=== PATIENT | male | born 1940 | race Caucasian/White ===

== ENCOUNTER 2017-03-01 00:50 | Outpatient (CLI) | payer MEDICARE, OTHER | END 2017-03-01 00:51 | disposition critical access hospital (66) | LOC: EMS 00:50 | PROVIDERS: ATTEND Surgery | DX: R53.1 Weakness (principal); R19.7 Diarrhea, unspecified; R10.9 Unspecified abdominal pain | CPT/HCPCS: A0425; A0427 ==

== ENCOUNTER 2017-03-01 01:22 | Emergency (ER) | payer MEDICARE, OTHER ==
[2017-03-01] MEDS ORDERED: ONDANSETRON 4 MG/2 ML VIAL IVP STA (01:37)
[2017-03-01] MEDS ORDERED: SODIUM CHLORIDE 0.9% 1,000 ML IV ONE ×2 (01:37→02:59)
[2017-03-01] MEDS ORDERED: ONDANSETRON 4 MG/2 ML VIAL ONE (01:51)
[2017-03-01 02:25] LABS: BASOPHILS % (AUTO) 0.1 %; EOSINOPHILS % (AUTO) 0.3 %; HCT - HEMATOCRIT 43.6 % (42.0-52.0); HGB - HEMOGLOBIN 14.9 g/dL (14.0-18.0); LYMPHOCYTES # (AUTO) 0.4 10^3/uL (1.5-3.5); LYMPHOCYTES % (AUTO) 3.1 %; MEAN CORPUSCULAR HEMOGLOBIN 33.8 pg (27.0-31.0); MEAN CORPUSCULAR HGB CONC 34.3 g/dL (32.0-36.0); MEAN CORPUSCULAR VOLUME 98.6 fL (80.0-94.0); MEAN PLATELET VOLUME 8.8 fL (7.4-11.4); MONOCYTES # (AUTO) 0.4 10^3/uL (0.0-1.0); MONOCYTES % (AUTO) 3.2 %; NEUTROPHILS # (AUTO) 10.7 10^3/uL (1.5-6.6); NEUTROPHILS % (AUTO) 93.3 %; RED BLOOD COUNT 4.42 10^6/uL (4.70-6.10); RED CELL DISTRIBUTION WIDTH 12.8 % (12.0-15.0); UNCORRECTED WHITE BLOOD COUNT 11.4 x10^3/uL; WHITE BLOOD COUNT 11.4 x10^3/uL (4.8-10.8)
[2017-03-01 02:34] LABS: ALBUMIN/GLOBULIN RATIO 1.4 (1.0-2.2); BILIRUBIN,TOTAL 0.8 mg/dL (0.2-1.0); CALCIUM 8.6 mg/dL (8.5-10.3); CREATININE 1.1 mg/dL (0.6-1.2); POTASSIUM 3.7 mmol/L (3.5-5.0); TOTAL PROTEIN 6.6 g/dL (6.7-8.2)
--- NOTE | 2017-03-01 02:53 | ED Physician Documentation ---
PD HPI NVD - Stated complaint Stated Complaint: ABD PN/NAUSEA - Chief complaint Chief Complaint: Abd Pain - History obtained from History obtained from: Patient, Family, EMS - History of Present Illness Timing - onset: Enter time (0000), Today Timing - duration: Hours Timing - details: Abrupt onset, Still present Associated symptoms: Abdominal pain, Dizzy, Near syncope / syncope Contributing factors: Other (had [place] dinner with his and she is well). No: Sick contact Improved by: Laying still, Vomiting, BM Similar symptoms before: Has not had sx before Recently seen: Not recently seen - Additonal information Additional information: 77 y/o male with a pacer was well yesterday entirely and this evening he was in bed when he developed sudden abdominal cramping, diaphoresis and went in to the bathroom to have a BM and after a while (30 miniutes on the pot) he had repeated episodes of diarrhea and he became profoundly weak. Review of Systems Constitutional: reports: Fever, Chills, Myalgias, Fatigue, Sweats Eyes: denies: Decreased vision Ears: denies: Ear pain Nose: denies: Congestion Throat: denies: Sore throat Cardiac: denies: Chest pain / pressure, Palpitations Respiratory: denies: Dyspnea, Cough GI: reports: Abdominal Pain, Nausea, Vomiting, Diarrhea : denies: Dysuria, Frequency Skin: denies: Rash Musculoskeletal: denies: Neck pain, Back pain, Extremity pain PD PAST MEDICAL HISTORY - Past Medical History Past Medical History: Yes Cardiovascular: Atrial fibrillation, Arrhythmia Other Past Medical History: pacemaker. ablation. TIA - Past Surgical History Cardiovascular: Pacemaker - Present Medications Home Medications: Ambulatory Orders Medication Instructions Recorded Confirmed Furosemide 40 mg PO BID 03/01/17 03/01/17 Lisinopril 20 mg PO DAILY 03/01/17 03/01/17 Lisinopril/Hydrochlorothiazide 12.5 - 20 mg PO DAILY 03/01/17 03/01/17 [Lisinopril-Hctz 20-12.5 mg Tab] Lovastatin 20 mg PO DAILY 03/01/17 03/01/17 Metoprolol Succinate [Toprol Xl] 25 mg PO DAILY 03/01/17 03/01/17 Spironolactone 25 mg PO DAILY 06/18/17 06/18/17 Warfarin [Coumadin] 5 mg PO DAILY 03/01/17 03/01/17 - Allergies Allergies/Adverse Reactions: Allergies Allergy/AdvReac Type Severity Reaction Status Date / Time shellfish derived Allergy Anaphylaxis Verified 03/01/17 01:33 shellfish Allergy Anaphylaxis Uncoded 03/01/17 01:33 - Social History Does the pt smoke?: No Smoking Status: Never smoker PD ED PE NORMAL - Vitals Vital signs reviewed: Yes (wide pulse pressure. ) - General General: Well developed/nourished, Other (The patient is shaking and chilling. ) - HEENT HEENT: Atraumatic, PERRL, EOMI - Neck Neck: Supple, no meningeal sign, No bony TTP - Cardiac Cardiac: RRR, No murmur - Respiratory Respiratory: No respiratory distress, Clear bilaterally - Abdomen Abdomen: Normal bowel sounds, Soft, Non tender, Non distended, No organomegaly - Back Back: No CVA TTP, No spinal TTP - Derm Derm: Normal color, Warm and dry, No rash - Extremities Extremities: No deformity, No edema - Neuro Neuro: Alert and oriented X 3, No motor deficit, No sensory deficit, Normal speech - Psych Psych: Normal mood, Normal affect Results - Vitals Vitals: Vital Signs - 24 hr 03/01/17 03/01/17 03/01/17 01:23 01:45 02:18 Temperature 36.7 C Heart Rate 70 70 70 Respiratory 14 16 16 Rate Blood Pressure 111/58 L 129/62 111/61 O2 Saturation 100 97 97 03/01/17 03:05 Temperature Heart Rate 70 Respiratory 15 Rate Blood Pressure 108/57 L O2 Saturation 94 Oxygen O2 Source Room air - Labs Labs: Laboratory Tests 03/01/17 03/01/17 03/01/17 02:15 02:15 02:15 WBC 11.4 H RBC 4.42 L Hgb 14.9 Hct 43.6 MCV 98.6 H MCH 33.8 H MCHC 34.3 RDW 12.8 Plt Count 148 MPV 8.8 Neut # 10.7 H Lymph # 0.4 L Mcc[place]ick # 0.4 Eos # 0.0 Baso # 0.0 Absolute Nucleated RBC 0.01 Nucleated RBCs 0.0 PT 26.9 H INR 2.4 H Sodium 141 Potassium 3.7 Chloride 105 Carbon Dioxide 27 Anion Gap 9.0 BUN 27 H Creatinine 1.1 Estimated GFR (MDRD) 65 L Glucose 114 H Lactic Acid Calcium 8.6 Total Bilirubin 0.8 AST 29 ALT 29 Alkaline Phosphatase 44 Troponin I Total Protein 6.6 L Albumin 3.9 Globulin 2.7 Albumin/Globulin Ratio 1.4 Lipase 20 L Urine Color Urine Clarity Urine pH Ur Specific [place] Urine Protein Urine Glucose (UA) Urine Ketones Urine Occult Blood Urine Nitrite Urine Bilirubin Urine Urobilinogen Ur Leukocyte Esterase Ur Microscopic Review Urine Culture Comments 03/01/17 03/01/17 03/01/17 02:15 02:15 03:44 WBC RBC Hgb Hct MCV MCH MCHC RDW Plt Count MPV Neut # Lymph # Mccormick # Eos # Baso # Absolute Nucleated RBC Nucleated RBCs PT INR Sodium Potassium Chloride Carbon Dioxide Anion Gap BUN Creatinine Estimated GFR (MDRD) Glucose Lactic Acid 2.5 H Calcium Total Bilirubin AST ALT Alkaline Phosphatase Troponin I < 0.04 < 0.04 Total Protein Albumin Globulin Albumin/Globulin Ratio Lipase Urine Color Urine Clarity Urine pH Ur Specific [place] Urine Protein Urine Glucose (UA) Urine Ketones Urine Occult Blood Urine Nitrite Urine Bilirubin Urine Urobilinogen Ur Leukocyte Esterase Ur Microscopic Review Urine Culture Comments 03/01/17 03/01/17 03:44 04:44 WBC RBC Hgb Hct MCV MCH MCHC RDW Plt Count MPV Neut # Lymph # [place] # Eos # Baso # Absolute Nucleated RBC Nucleated RBCs PT INR Sodium Potassium Chloride Carbon Dioxide Anion Gap BUN Creatinine Estimated GFR (MDRD) Glucose Lactic Acid 1.7 Calcium Total Bilirubin AST ALT Alkaline Phosphatase Troponin I Total Protein Albumin Globulin Albumin/Globulin Ratio Lipase Urine Color YELLOW Urine Clarity CLEAR Urine pH 6.0 Ur Specific [place] 1.020 Urine Protein NEGATIVE Urine Glucose (UA) NEGATIVE Urine Ketones NEGATIVE Urine Occult Blood NEGATIVE Urine Nitrite NEGATIVE Urine Bilirubin NEGATIVE Urine Urobilinogen 0.2 (NORMAL) Ur Leukocyte Esterase NEGATIVE Ur Microscopic Review NOT INDICATED Urine Culture Comments NOT INDICATED Procedures - IVC sono (time) 0135 Bedside IVC sono: IVC measures (cm) (1.23), IVC collapsed c insp (cm) (complete with 1st liter running open), Dehydration PD MEDICAL DECISION MAKING - ED course Complexity details: reviewed old records, reviewed results, re-evaluated patient , considered differential, d/w patient, d/w family ED course: 77 y/o male developed shaking chills, sweats and diarrhea this evening after being well during the day. He remains dehydrated on arrival to the ED after one liter of saline and a second liter is administered followed by 200ml/hr. until urine is returned. Feels much improved at the time of completion of treatment. Departure - Departure Disposition: 01 Home, Self Care Clinical Impression: Gastroenteritis, Dehydration Instructions: ED Food Poison Or Gastroenteritis, ED Dehydration Follow-Up: Temo Kenny [Physician No Access] -
[2017-03-01 02:56] LABS: INR 2.4 (0.8-1.2); PT - PROTHROMBIN TIME 26.9 secs (9.9-12.6)
[2017-03-01 04:55] LABS: BILIRUBIN,URINE NEGATIVE (NEGATIVE)
[2017-03-01 05:07] LABS: UA CHARGE (STRIP ONLY) YES; UR CULTURE IF IND NOT INDICATED
[2017-03-01 05:26] VITALS: BP 104/60
== END 2017-03-01 05:30 | disposition home or self-care (01) ==
LOC: EDUNIT# → ED 01:22
DX: K52.9 Noninfective gastroenteritis and colitis, unspecified (principal); E86.0 Dehydration; I48.91 Unspecified atrial fibrillation; Z79.01 Long term (current) use of anticoagulants; Z95.0 Presence of cardiac pacemaker
CPT/HCPCS: 36415; 80053; 81001; 81003; 83605; 83690; 84484; 85025; 85610; 87040; 87086; 96374; 99284

== ENCOUNTER 2021-04-06 11:40 | Outpatient (CLI) | payer MEDICARE, OTHER | END 2021-04-06 11:41 | disposition critical access hospital (66) | LOC: EMS 11:40 | DX: S01.81XA Laceration without foreign body of other part of head, initial encounter (principal); W01.0XXA Fall on same level from slipping, tripping and stumbling without subsequent striking against object, initial encounter; Y93.89 Activity, other specified; Y92.008 Other place in unspecified non-institutional (private) residence as the place of occurrence of the external cause | CPT/HCPCS: A0425; A0429 ==

== ENCOUNTER 2021-04-06 11:42 | Emergency (ER) | payer MEDICARE, OTHER ==
[2021-04-06] MEDS ORDERED: BUFFERED LIDOCAINE 10 ML SYRINGE SUBQ STA (11:48)
[2021-04-06] MEDS ORDERED: TETANUS/DIPHTHERIA/PERTUSSIS 0.5 ML SYRINGE IM ONE (11:48)
--- NOTE | 2021-04-06 11:51 | ED Physician Documentation ---
PD HPI HEAD INJURY - Stated complaint Stated Complaint: GLF / HEAD INJ - History obtained from History obtained from: Patient - Additional information Additional information: 81-year-old gentleman who is anticoagulated With Coumadin for A. fib likely tripped and fell in his driveway although does not remember it but there was no loss of consciousness. Has a laceration over the left eyebrow with some embedded plastic from his sunglasses. Tetanus is unknown. Denies headache. No other injuries. Brought in as a modified trauma and attended to immediately. Review of Systems Ten Systems: 10 systems reviewed and negative Constitutional: reports: Reviewed and negative Eyes: reports: Reviewed and negative Ears: reports: Reviewed and negative Nose: reports: Reviewed and negative Throat: reports: Reviewed and negative PD PAST MEDICAL HISTORY - Past Medical History Cardiovascular: Atrial fibrillation, Arrhythmia - Past Surgical History Cardiovascular: Pacemaker - Present Medications Home Medications: Ambulatory Orders Medication Instructions Recorded Confirmed Furosemide 40 mg PO BID 03/01/17 03/01/17 Lisinopril/Hydrochlorothiazide 12.5 - 20 mg PO DAILY 03/01/17 03/01/17 [Lisinopril-Hctz 20-12.5 mg Tab] Lovastatin 20 mg PO DAILY 03/01/17 03/01/17 Metoprolol Succinate [Toprol Xl] 25 mg PO DAILY 03/01/17 03/01/17 Spironolactone 25 mg PO DAILY 03/01/17 03/01/17 Warfarin [Coumadin] 5 mg PO DAILY 03/01/17 03/01/17 lisinopriL [Lisinopril] 20 mg PO DAILY 03/01/17 03/01/17 Bacitracin Zinc Oint 1 applic TOP BID #1 gm 04/06/21 - Allergies Allergies/Adverse Reactions: Allergies Allergy/AdvReac Type Severity Reaction Status Date / Time shellfish derived Allergy Anaphylaxis Verified 04/06/21 11:52 shellfish Allergy Anaphylaxis Uncoded 04/06/21 11:52 - Social History Does the pt smoke?: No Smoking Status: Never smoker PD ED PE NORMAL - Vitals Vital signs reviewed: Yes - General General: Alert and oriented X 3, No acute distress - HEENT HEENT: PERRL, EOMI, Other (4 cm L-shaped laceration in the left eyebrow with embedded plastic bits which were easily removed.) - Neck Neck: Supple, no meningeal sign, No bony TTP - Extremities Extremities: No deformity, No tenderness to palpate, Normal ROM s pain - Neuro Neuro: Alert and oriented X 3, No motor deficit, No sensory deficit, Normal speech Eye Opening: Spontaneous Motor: Obeys Commands Verbal: Oriented GCS Score: 15 Results - Vitals Vitals: Vital Signs - 24 hr 04/06/21 04/06/21 11:44 12:06 Temperature 36.3 C L 36.4 C L Heart Rate 70 71 Respiratory 16 17 Rate Blood Pressure 139/62 H 139/62 H O2 Saturation 98 99 Oxygen O2 Source Room air - Labs Labs: Laboratory Tests 04/06/21 12:07 INR (Fingerstick) 2.8 H - Rads (name of study) CT Head and Cspine Radiology: EMP read contemporaneously Procedures - Laceration (location) L eyebrow Length in cm: 4 Wound type: Irregular, Into muscle, Contaminated Anesthesia: Lidocaine 1%, With bicarb Wound preparation: Irrigated copiously NS, Debrided extensively, Wound explored, To the base, FB identified (multiple glass and removed) Deep layer closure: Vicryl, size #-0 - enter number (5-0), # sutures - enter number (1) Skin layer closure: Prolene, Size #-0 - enter number (6-0), Sutures - enter # (13) Other: Patient tolerated well, No complications, Neurovascular intact, Tetanus booster given Departure - Departure Disposition: 01 Home, Self Care Clinical Impression: Concussion, Injury of head and neck, Laceration Condition: Good Record reviewed to determine appropriate education?: Yes Instructions: ED Laceration Facial Sutr Tape, ED Head Injury Closed Prescriptions: Bacitracin Zinc Oint 1 applic TOP BID #1 gm Comments: Your INR today was 2.8. This was within range of where it should be. CT of the cervical spine and head show no evidence of significant trauma. The laceration was closed with 13 nonabsorbable sutures. Come back for any signs of infection which would include: Redness, swelling, drainage, increased pain, or fevers. You can wash it soap and water. Keep it covered and moist with bacitracin ointment which is available over the counter; avoid neosporin. Follow-up with your physician in 7 days for suture removal.
--- NOTE | 2021-04-06 12:23 | CT Report ---
PROCEDURE: HEAD WO INDICATIONS: head injury TECHNIQUE: Noncontrast 4.5 mm thick angled axial sections acquired from the foramen magnum to the vertex. For r adiation dose reduction, the following was used: automated exposure control, adjustment of mA and/or kV according to patient size. COMPARISON: Correlation is made with the accompanying cervical spine CT, 04/06/2021. FINDINGS: Image quality: There is streak artifact seen through the skull base. CSF spaces: Basal cisterns are patent. No extra-axial fluid collections. Ventricles are normal in size and shape. Brain: No midline shift. No intracranial masses or hemorrhage. Lomas-white matter interface is norm al. Skull and face: There is a left forehead laceration seen, with soft tissue gas. No underlying calvar ial fracture can be seen. Calvarium and visualized facial bones are intact, without suspicious lesion s. Sinuses: There is a small air-fluid level seen within the left maxillary sinus. IMPRESSION: Left forehead hematoma seen, without an underlying calvarial fracture. There is an air-fluid level seen within the left maxillary sinus. No displaced facial bone fractures are detected on this study. No intracranial hemorrhage is seen. No significant intracranial abnormality is seen. Reviewed by: Juancho Verma MD on 04/06/2021 11:22 AM SAE Approved by: Juancho Verma MD on 04/06/2021 11:22 AM SAE Station ID: [id number]
--- NOTE | 2021-04-06 12:24 | CT Report ---
PROCEDURE: CERVICAL SPINE WO INDICATIONS: Head injury TECHNIQUE: Noncontrast 3 mm thick sections acquired from the skull base to the T4 level. Sagittal and coronal r eformats were then constructed. For radiation dose reduction, the following was used: automated exp osure control, adjustment of mA and/or kV according to patient size. COMPARISON: Correlation is made with the accompanying head CT, 04/06/2021. FINDINGS: Image quality: Excellent. Bones: No fractures or dislocations. Visualized superior ribs are intact. There is moderate to severe disc space narrowing seen at C5-C6 and at C6-C7. Posteriorly directed end plate osteophytes are seen at C5-C6. Soft tissues: Prevertebral soft tissues are normal in thickness. No paravertebral hematomas. No ap ical pneumothoraces. Atherosclerotic calcification is seen. Pacer leads are partially seen on the left. IMPRESSION: No acute fracture can be seen. Lower cervical spine degenerative changes are seen. Incidental note is made of: Pacer leads Reviewed by: Juancho Verma MD on 04/06/2021 11:23 AM SAE Approved by: Juancho Verma MD on 04/06/2021 11:23 AM SAE Station ID: [id number]
[2021-04-06] MEDS ORDERED: BACITRACIN ZINC OINT 1 PACKET TOP STA (12:42)
[2021-04-06 13:17] VITALS: BP 107/63
== END 2021-04-06 13:17 | disposition home or self-care (01) ==
LOC: EDUNIT# → ED 11:42
DX: S01.122A Laceration with foreign body of left eyelid and periocular area, initial encounter (principal); S06.0X0A Concussion without loss of consciousness, initial encounter; W18.30XA Fall on same level, unspecified, initial encounter; Y93.89 Activity, other specified; I48.91 Unspecified atrial fibrillation; Z79.01 Long term (current) use of anticoagulants; Z23 Encounter for immunization
CPT/HCPCS: 12052; 70450; 72125; 85610; 90715; 99283; 99284; A9270

== ENCOUNTER 2024-02-26 17:38 | Outpatient (CLI) | payer MEDICARE | END 2024-02-26 17:39 | disposition critical access hospital (66) | LOC: EMS 17:38 | DX: R50.9 Fever, unspecified (principal); R53.1 Weakness | CPT/HCPCS: A0425; A0427 ==

== ENCOUNTER 2024-02-26 18:09 | Emergency (ER) | payer MEDICARE, OTHER ==
--- NOTE | 2024-02-26 18:17 | ED Physician Documentation ---
PD HPI FEVER - Stated complaint Stated Complaint: FEVER - History obtained from History obtained from: Patient, EMS - Additional information Additional information: 84-year-old gentleman who presents by ambulance. He goes by Manpreet and today [birth year] his birthday. It sounds like he had major trauma back in December and was sent to [facility] in [place] during which he may have had per his description may be a hemothorax with chest tube on the left. He has been catheter dependent since then. He had his catheter changed on Thursday by his urologist who wrote him prescription for Bactrim with the instructions to start if he ran a fever. It s ounds like he may have had a positive urinalysis in clinic. He started to run a fever on Thursday on and off up to 102 tonight. They filled the Bactrim yesterday but have not started it. PD PAST MEDICAL HISTORY - Past Medical History Cardiovascular: Atrial fibrillation, Arrhythmia - Past Surgical History Cardiovascular: Pacemaker - Present Medications Home Medications: Ambulatory Orders Medication Instructions Recorded Confirmed Furosemide 40 mg PO BID 03/01/17 08/20/21 Metoprolol Succinate [Toprol Xl] 50 mg PO BID 03/01/17 08/20/21 Atorvastatin [Lipitor] 40 mg PO DAILY 07/26/21 08/20/21 Apixaban [Eliquis] 5 mg PO DAILY 02/26/24 02/26/24 Aspirin [Vazalore] 81 mg PO DAILY 02/26/24 02/26/24 Sacubitril/Valsartan [Entresto 24 1 each PO DAILY 02/26/24 02/26/24 mg-26 mg Tablet] - Allergies Allergies/Adverse Reactions: Allergies Allergy/AdvReac Type Severity Reaction Status Date / Time shellfish derived Allergy Anaphylaxis Verified 02/26/24 18:22 shellfish Allergy Anaphylaxis Uncoded 02/26/24 18:22 - Social History Does the pt smoke?: No Smoking Status: Never smoker PD ED PE NORMAL - Vitals Vital signs reviewed: Yes - General General: Alert and oriented X 3, No acute distress - Cardiac Cardiac: RRR, No murmur - Respiratory Respiratory: No respiratory distress, Clear bilaterally - Abdomen Abdomen: Soft, Non tender - Male Male : Other (Pardo in place) - Back Back: No CVA TTP, No spinal TTP - Derm Derm: Normal color, Warm and dry - Neuro Neuro: Alert and oriented X 3, Normal speech Results - Vitals Vitals: Vital Signs - 24 hr 02/26/24 02/26/24 18:19 20:09 Temperature 36.8 C 37.4 C Heart Rate 70 55 L Respiratory 18 20 Rate Blood Pressure 97/49 L 108/53 L O2 Saturation 94 97 Oxygen O2 Source Room air - EKG (time done) 1844 EKG releavant findings:: EKG personally interpreted by author of this note. Relevant findings are: Rate: Rate (enter#) (70) Rhythm: Paced Computer interpretation: Agree with computer - Labs Labs: Laboratory Tests 02/26/24 02/26/24 02/26/24 18:40 18:42 18:42 WBC 13.7 H RBC 3.34 L Hgb 10.4 L Hct 32.9 L MCV 98.5 H MCH 31.1 H MCHC 31.6 L RDW 14.5 Plt Count 174 MPV 10.1 Neut # (Auto) 12.5 H Lymph # (Auto) 0.3 L [place] # (Auto) 0.9 Eos # (Auto) 0.0 Baso # (Auto) 0.0 Absolute Nucleated RBC 0.00 Nucleated RBC % 0.0 Sodium 134 L Potassium 4.3 Chloride 101 Carbon Dioxide 27 Anion Gap 6.0 BUN 40 H Creatinine 1.3 Estimated GFR (MDRD) 52 L Glucose 149 H Lactic Acid Calcium 8.3 L Total Bilirubin 1.3 H AST 12 ALT 14 Alkaline Phosphatase 50 Total Protein 5.8 L Albumin 3.3 Globulin 2.5 Albumin/Globulin Ratio 1.3 Lipase < 10 L Urine Color YELLOW Urine Clarity CLOUDY Urine pH 5.5 Ur Specific [place] 1.020 Urine Protein 100 H Urine Glucose (UA) NEGATIVE Urine Ketones NEGATIVE Urine Occult Blood LARGE H Urine Nitrite NEGATIVE Urine Bilirubin NEGATIVE Urine Urobilinogen 0.2 (NORMAL) Ur Leukocyte Esterase LARGE H Urine RBC 6-10 H Urine WBC >25 H Ur Squamous Epith Cells NONE SEEN Urine Bacteria Moderate H Ur Microscopic Review INDICATED Urine Culture Comments INDICATED 02/26/24 18:42 WBC RBC Hgb Hct MCV MCH MCHC RDW Plt Count MPV Neut # (Auto) Lymph # (Auto) [place] # (Auto) Eos # (Auto) Baso # (Auto) Absolute Nucleated RBC Nucleated RBC % Sodium Potassium Chloride Carbon Dioxide Anion Gap BUN Creatinine Estimated GFR (MDRD) Glucose Lactic Acid 1.0 Calcium Total Bilirubin AST ALT Alkaline Phosphatase Total Protein Albumin Globulin Albumin/Globulin Ratio Lipase Urine Color Urine Clarity Urine pH Ur Specific [place] Urine Protein Urine Glucose (UA) Urine Ketones Urine Occult Blood Urine Nitrite Urine Bilirubin Urine Urobilinogen Ur Leukocyte Esterase Urine RBC Urine WBC Ur Squamous Epith Cells Urine Bacteria Ur Microscopic Review Urine Culture Comments PD Medical Decision Making - ED course ED course: 84-year-old gentleman filled a prescription for Bactrim for UTI yesterday but has not started taking it and now has a fever and shaking chills. On arrival he was feeling much better after some IV fluids. Workup demonstrates soft blood pressures but no tachycardia, that said he is paced. He says that his blood pressure is always on the low side, and review of the chart shows prior visits with blood pressures in the same range. Otherwise white count is modestly elevated at 13,000 with mild to moderate anemia. CMP showing only mild abnormalities and no lactic acidosis. His urine is positive for pyuria. He is treated here with IV fluids and Rocephin he does want to go home and feels well enough to go home. He has a prescription for Bactrim and advised to start this tomorrow morning pending cultures. Departure - Departure Disposition: Home, Self Care Clinical Impression: UTI (urinary tract infection) Qualifiers: Urinary tract infection type: catheter-associated UTI Indwelling urinary catheter type: indwelling urethral catheter Encounter type: initial encounter Qualified Code(s): T83.511A - Infection and inflammatory reaction due to indwelling urethral catheter, initial encounter Fever Qualifiers: Fever type: due to other condition Qualified Code(s): R50.81 - Fever presenting with conditions classified elsewhere Condition: Good Record reviewed to determine appropriate education?: Yes Instructions: ED UTI Cystitis Male Comments: You were seen today for catheter associated UTI. You received a dose of ceftriaxone antibiotic here and you should start the Bactrim tomorrow that you are urologist prescribed. We will culture your urine, the results should be done in 48-72 hours. If an antibiotic change is necessary we will call you. Return if worse in the meantime, especially if you develop increasing flank pain, fevers, or cannot keep down the medication. Follow-up with your urologist after the weekend for recheck.
[2024-02-26 18:59] LABS: BASOPHILS % (AUTO) 0.1 %; EOSINOPHILS % (AUTO) 0.1 %; HCT - HEMATOCRIT 32.9 % (42.0-52.0); HGB - HEMOGLOBIN 10.4 g/dL (14.0-18.0); LYMPHOCYTES # (AUTO) 0.3 10^3/uL (1.5-3.5); LYMPHOCYTES % (AUTO) 2.3 %; MEAN CORPUSCULAR HEMOGLOBIN 31.1 pg (27.0-31.0); MEAN CORPUSCULAR HGB CONC 31.6 g/dL (32.0-36.0); MEAN CORPUSCULAR VOLUME 98.5 fL (80.0-94.0); MEAN PLATELET VOLUME 10.1 fL (7.4-11.4); MONOCYTES # (AUTO) 0.9 10^3/uL (0.0-1.0); MONOCYTES % (AUTO) 6.3 %; NEUTROPHILS # (AUTO) 12.5 10^3/uL (1.5-6.6); NEUTROPHILS % (AUTO) 90.8 %; PLT - PLATELET COUNT 174 10^3/uL (130-450); RED BLOOD COUNT 3.34 10^6/uL (4.70-6.10); RED CELL DISTRIBUTION WIDTH 14.5 % (12.0-15.0); WHITE BLOOD COUNT 13.7 x10^3/uL (4.8-10.8)
[2024-02-26 19:02] LABS: BILIRUBIN,URINE NEGATIVE (NEGATIVE); GLUCOSE, URINE (UA) NEGATIVE (NEGATIVE); KETONES,URINE (UA) NEGATIVE (NEGATIVE); LEUKOCYTE ESTERASE, URINE LARGE (NEGATIVE); NITRITE,URINE NEGATIVE (NEGATIVE); OCCULT BLOOD,URINE LARGE (NEGATIVE); PH,URINE 5.5 PH (5.0-7.5); PROTEIN,URINE 100 mg/dL (NEGATIVE); UROBILINOGEN,URINE 0.2 (NORMAL) E.U./dL (NORMAL)
[2024-02-26 19:12] LABS: ALBUMIN 3.3 g/dL (3.2-5.5); ALBUMIN/GLOBULIN RATIO 1.3 (1.0-2.2); ALKALINE PHOSPHATASE 50 IU/L (42-121); ALT ALANINE AMINOTRANSFERASE 14 IU/L (10-60); AST ASPARTATE AMINOTRANSFERASE 12 IU/L (10-42); BILIRUBIN,TOTAL 1.3 mg/dL (0.2-1.0); BUN - BLOOD UREA NITROGEN 40 mg/dL (6-20); CALCIUM 8.3 mg/dL (8.5-10.3); CARBON DIOXIDE - CO2 27 mmol/L (21-32); CHLORIDE 101 mmol/L (101-111); CREATININE 1.3 mg/dL (0.6-1.3); GFR - MDRD 52 (>89); GLUCOSE 149 mg/dL (74-104); POTASSIUM 4.3 mmol/L (3.5-4.5); SODIUM 134 mmol/L (135-145); TOTAL PROTEIN 5.8 g/dL (6.4-8.9)
[2024-02-26 19:13] LABS: BACTERIA,URINE Moderate /HPF (None Seen); CLARITY,URINE CLOUDY (CLEAR); SQUAMOUS EPITHELIAL CELL,UR NONE SEEN (<= Few); WBC,URINE >25 /HPF (0-3)
[2024-02-26 19:14] LABS: LIPASE < 10 U/L (11-82)
--- NOTE | 2024-02-26 19:19 | XRAY Report ---
PROCEDURE: Chest 1V INDICATIONS: cough TECHNIQUE: One view of the chest was acquired. COMPARISON: None. FINDINGS: Surgical changes and devices: Left chest wall pacemaker. Lungs and pleura: Blunting of the left costophrenic angle. Mild linear opacity within the left lower lung zone. Mediastinum: Mediastinal contours appear normal. Heart size is mildly enlarged. Bones and chest wall: No suspicious bony lesions. Overlying soft tissues appear unremarkable. IMPRESSION: Blunting of the left costophrenic angle, may represent small effusion, atelectasis or consolidation. Mild linear opacity within the left lower lung field. Reviewed by: Sudheer Dos Santos MD on 02/26/2024 7:18 PM PDT Approved by: Sudheer Dos Santos MD on 02/26/2024 7:18 PM PDT Station ID: [id number]
[2024-02-26 20:13] VITALS: BP 108/53; O2SAT 97
[2024-02-26] MEDS: cefTRIAXone 1 GM VIAL IVP STA (20:17)
--- NOTE | 2024-02-27 08:22 | ED Physician Documentation ---
ED Addendum - Addendum Addendum: 02/27/24 08:22 Patient with positive blood cultures, 2 of 2 with gram-negative bacilli. Recommend patient come back to the emergency department for repeat evaluation today. LISSETT Todd to call patient back to the ER
== END 2024-02-26 21:20 | disposition home or self-care (01) ==
LOC: EDBD → ED 18:09
DX: T83.511A Infection and inflammatory reaction due to indwelling urethral catheter, initial encounter (principal); B96.89 Other specified bacterial agents as the cause of diseases classified elsewhere; R50.81 Fever presenting with conditions classified elsewhere; I48.91 Unspecified atrial fibrillation; I49.9 Cardiac arrhythmia, unspecified; Z95.0 Presence of cardiac pacemaker; Z79.01 Long term (current) use of anticoagulants; Z79.899 Other long term (current) drug therapy
CPT/HCPCS: 36415; 80053; 81001; 81003; 83605; 83690; 84484; 85025; 87040; 87086; 87154; 87181; 93005; 96374; 99284

== ENCOUNTER 2024-02-27 10:15 | Observation (INO) | payer MEDICARE ==
[2024-02-27 10:56] LABS: BASOPHILS % (AUTO) 0.2 %; EOSINOPHILS % (AUTO) 0.2 %; HCT - HEMATOCRIT 35.5 % (42.0-52.0); HGB - HEMOGLOBIN 11.1 g/dL (14.0-18.0); LYMPHOCYTES # (AUTO) 0.4 10^3/uL (1.5-3.5); LYMPHOCYTES % (AUTO) 3.4 %; MEAN CORPUSCULAR HGB CONC 31.3 g/dL (32.0-36.0); MEAN CORPUSCULAR VOLUME 99.2 fL (80.0-94.0); MEAN PLATELET VOLUME 10.3 fL (7.4-11.4); MONOCYTES # (AUTO) 0.9 10^3/uL (0.0-1.0); MONOCYTES % (AUTO) 7.4 %; NEUTROPHILS # (AUTO) 10.7 10^3/uL (1.5-6.6); NEUTROPHILS % (AUTO) 88.2 %; PLT - PLATELET COUNT 171 10^3/uL (130-450); RED BLOOD COUNT 3.58 10^6/uL (4.70-6.10); RED CELL DISTRIBUTION WIDTH 14.3 % (12.0-15.0); WHITE BLOOD COUNT 12.1 x10^3/uL (4.8-10.8)
--- NOTE | 2024-02-27 10:56 | ED Physician Documentation ---
History of Present Illness - Stated complaint Stated Complaint: + BLOOD CX - Chief complaint Chief Complaint: General - History obtained from History obtained from: Patient - History of Present Illness Timing: Today Pain level max: 0 Pain level now: 0 - Additonal information Additional information: 84-year-old male presents to the emergency department after being called back for 2 positive blood cultures overnight. He was seen here yesterday. Briefly he had a traumatic fall back in December and was at [facility] in [place] where it sounds like he had a chest tube and hemothorax. He has been catheter dependent since then. He was treated for UTI last night with Rocephin. states he had a another spike of fever overnight to 103 with shaking chills. He has not had any nausea or vomiting. Does have a mild chronic dry cough. Currently he states he is feeling better. He does have a history of low blood pressure and states his normal blood pressure is around 95-100 systolic. Review of Systems Constitutional: reports: Fever, Chills Nose: denies: Rhinorrhea / runny nose, Congestion Respiratory: denies: Cough GI: denies: Nausea, Vomiting, Diarrhea Skin: denies: Rash PD PAST MEDICAL HISTORY - Past Medical History Past Medical History: Yes Cardiovascular: Atrial fibrillation, Arrhythmia : Retention - Past Surgical History Past Surgical History: Yes Cardiovascular: Pacemaker - Present Medications Home Medications: Ambulatory Orders Medication Instructions Recorded Confirmed Furosemide 40 mg PO BID 03/01/17 02/27/24 Metoprolol Succinate [Toprol Xl] 50 mg PO BID 03/01/17 02/27/24 Atorvastatin [Lipitor] 40 mg PO DAILY 07/26/21 02/27/24 Apixaban [Eliquis] 5 mg PO DAILY 02/26/24 02/27/24 Aspirin [Vazalore] 81 mg PO DAILY 02/26/24 02/27/24 Sacubitril/Valsartan [Entresto 24 1 each PO DAILY 02/26/24 02/27/24 mg-26 mg Tablet] SULFAM/TRIM 800/160 Prepack 2 1 tab PO BID 02/27/24 02/27/24 [BACTRIM DS 800/160 Prepack 2] - Allergies Allergies/Adverse Reactions: Allergies Allergy/AdvReac Type Severity Reaction Status Date / Time shellfish derived Allergy Anaphylaxis Verified 02/27/24 10:39 shellfish Allergy Anaphylaxis Uncoded 02/27/24 10:39 - Social History Does the pt smoke?: No Smoking Status: Never smoker Does the pt drink ETOH?: No Does the pt have substance abuse?: No - Immunizations Immunizations are current?: Yes - POLST Patient has POLST: No PD ED PE NORMAL - Vitals Vital signs reviewed: Yes - General General: Alert and oriented X 3, No acute distress - HEENT HEENT: Moist mucous membranes - Neck Neck: Supple, no meningeal sign - Cardiac Cardiac: RRR - Respiratory Respiratory: No respiratory distress, Clear bilaterally - Abdomen Abdomen: Soft, Non tender, Non distended - Derm Derm: Warm and dry - Extremities Extremities: No edema - Neuro Neuro: Alert and oriented X 3 Results - Vitals Vitals: Vital Signs - 24 hr 02/27/24 02/27/24 10:32 10:53 Temperature 36.7 C Heart Rate 70 73 Respiratory 20 16 Rate Blood Pressure 102/52 L 94/49 L O2 Saturation 100 96 Oxygen O2 Source Room air - Labs Labs: Laboratory Tests 02/27/24 02/27/24 02/27/24 10:44 10:44 10:44 WBC 12.1 H RBC 3.58 L Hgb 11.1 L Hct 35.5 L MCV 99.2 H MCH 31.0 MCHC 31.3 L RDW 14.3 Plt Count 171 MPV 10.3 Neut # (Auto) 10.7 H Lymph # (Auto) 0.4 L [place] # (Auto) 0.9 Eos # (Auto) 0.0 Baso # (Auto) 0.0 Absolute Nucleated RBC 0.00 Nucleated RBC % 0.0 Sodium 137 Potassium 4.2 Chloride 101 Carbon Dioxide 30 Anion Gap 6.0 BUN 43 H Creatinine 1.3 Estimated GFR (MDRD) 52 L Glucose 150 H Lactic Acid 2.0 Calcium 8.8 Total Bilirubin 0.9 AST 13 ALT 16 Alkaline Phosphatase 61 Total Protein 6.2 L Albumin 3.5 Globulin 2.7 Albumin/Globulin Ratio 1.3 Lipase < 10 L PD Medical Decision Making - ED course Complexity details: reviewed results, re-evaluated patient, considered differential, d/w patient, d/w family, d/w life consultant ED course: Patient with 2 positive blood cultures, likely E. coli bacteremia secondary to UTI with a catheter in place, given Rocephin less than 24 hours ago, therefore second dose was not given in the emergency department. Lactate is normal. White blood cell count is still elevated. He did have fevers and shaking chills/rigors overnight, therefore we will admit the patient for further care. Discussed the case with the hospitalist, Dr. Wilson, who accepts. This document was made in part using voice recognition software. While efforts are made to proofread this document, sound alike and grammatical errors may occur. Departure - Departure Disposition: 66 [facility] DC/Xfer Clinical Impression: Bacteremia Fever Qualifiers: Fever type: unspecified Qualified Code(s): R50.9 - Fever, unspecified UTI (urinary tract infection) Qualifiers: Urinary tract infection type: acute cystitis Hematuria presence: without hematuria Qualified Code(s): N30.00 - Acute cystitis without hematuria Condition: Stable Forms: PCP List
[2024-02-27 11:09] LABS: ALBUMIN 3.5 g/dL (3.2-5.5); ALBUMIN/GLOBULIN RATIO 1.3 (1.0-2.2); ALKALINE PHOSPHATASE 61 IU/L (42-121); ALT ALANINE AMINOTRANSFERASE 16 IU/L (10-60); AST ASPARTATE AMINOTRANSFERASE 13 IU/L (10-42); BILIRUBIN,TOTAL 0.9 mg/dL (0.2-1.0); BUN - BLOOD UREA NITROGEN 43 mg/dL (6-20); CALCIUM 8.8 mg/dL (8.5-10.3); CARBON DIOXIDE - CO2 30 mmol/L (21-32); CHLORIDE 101 mmol/L (101-111); CREATININE 1.3 mg/dL (0.6-1.3); GFR - MDRD 52 (>89); GLUCOSE 150 mg/dL (74-104); LIPASE < 10 U/L (11-82); POTASSIUM 4.2 mmol/L (3.5-4.5); SODIUM 137 mmol/L (135-145); TOTAL PROTEIN 6.2 g/dL (6.4-8.9)
[2024-02-27] MEDS ORDERED: SODIUM CHLORIDE FLUSH 0.9% 10 ML SYRINGE IVP PRN (11:36)
[2024-02-27] MEDS ORDERED: oxyCODONE 5 MG TABLET PO PRN (11:54)
[2024-02-27] MEDS ORDERED: ONDANSETRON ODT 4 MG TABLET TL PRN (11:54)
--- NOTE | 2024-02-27 12:03 | HISTORY & PHYSICAL EXAMINATION ---
Chief Complaint - Chief Complaint Chief Complaint: fever and chills History of Present Illness - Admitted From Admitted From:: ED - History Obtained From Records Reviewed: ED visit from 02/25 History obtained from: patient and . - History of Present Illness HPI Comment/Other: 84-year-old male who had a fall resulting in rib fractures and hemothorax and an 8-day admission to [facility] in [place] on January 03. During that admission he received chest tube spent several days in the ICU but recovered well. Unfortunately he had urinary retention during that admission which has not resolved since discharge. He has had several trials of removal of a urinary catheter. He has been seen by Dr. Carreno at the [facility], and is seeking urological second opinion at [facility]. Earlier this week when seen in the office by Dr. Carreno, bacteruria was noted. He was prescribed Bactrim but did not take it secondary to having no signs or symptoms of a urinary tract infection. Unfortunately several days later he developed fever and chills, specifically 4 days ago developed fever and chills. Due to this was seen in our emergency department last night. Blood cultures were drawn and 2 out of 2 bottles came back with gram-negative bacilli likely E. coli. He had a temp at home up to 103 last night and returns today. He received Rocephin in our emergency department last night. He saw his primary care doctor at [facility] on November 23. Had a PSA drawn around that time it was 1.6. Also had a negative digital rectal exam. He denies any history of problems with BPH. Or difficulty voiding. History - Past Medical History Cardiovascular: reports: Atrial fibrillation, Arrhythmia Respiratory: reports: Other (Pulmonary nodules that were an incidental finding on CT of the chest related to trauma admission in December of this year.) : reports: Retention MRSA Hx?: No - Past Surgical History Cardiovascular: reports: Pacemaker (not an AICD, to his knowledge) - Family & Social History Family History: Mother: (old age, at 83), Father: , COPD/Emphysema (at age 59, smoker) Living arrangement: At home Living Situation: With spouse/s.o. - Substance History Use: Uses substance without health or social issues: NONE Abuse: Recurrent use of substance despite neg consequences: NONE Dependence: Experiences withdrawal or developed tolerances: NONE - POLST Patient has POLST: No POLST Status: Full Code Meds/Allgy - Home Medications Home Medications: Ambulatory Orders Medication Instructions Recorded Confirmed Furosemide 80 mg PO BID 03/01/17 02/27/24 Metoprolol Succinate [Toprol Xl] 50 mg PO BID 03/01/17 02/27/24 Atorvastatin [Lipitor] 40 mg PO DAILY 07/26/21 02/27/24 Apixaban [Eliquis] 5 mg PO BID 02/26/24 02/27/24 Aspirin [Vazalore] 81 mg PO DAILY 02/26/24 02/27/24 Sacubitril/Valsartan [Entresto 24 1 each PO DAILY 02/26/24 02/27/24 mg-26 mg Tablet] Gabapentin [Neurontin] 300 mg PO TID 02/27/24 02/27/24 SULFAM/TRIM 800/160 Prepack 2 1 tab PO BID 02/27/24 02/27/24 [BACTRIM DS 800/160 Prepack 2] Spironolactone [Aldactone] 12.5 mg PO DAILY 02/27/24 02/27/24 Tamsulosin [Flomax] 0.8 mg PO HS 02/27/24 02/27/24 - Allergies Allergies/Adverse Reactions: Allergies Allergy/AdvReac Type Severity Reaction Status Date / Time shellfish derived Allergy Anaphylaxis Verified 02/27/24 10:39 shellfish Allergy Anaphylaxis Uncoded 02/27/24 10:39 Review of Systems - Constitutional Constitutional: reports: Fatigue, Fever, Chills, Malaise - Eyes Eyes: denies: Blurred vision - Ears, Nose & Throat Ears, Nose & Throat: denies: Ear pain, Tinnitus - Cardiovascular Cariovascular: reports: Edema (chronic LLE edema). denies: Palpitations, Chest pain - Respiratory Respiratory: reports: Cough (has had cough with white sputum since) - Gastrointestinal Gastrointestinal: denies: Abdominal pain, Abdominal distention - Genitourinary Genitourinary: denies: Hematuria - Musculoskeletal Musculoskeletal: denies: Muscle pain - Integumentary Integumentary: denies: Rash - Neurological Neurological: denies: General weakness - Psychiatric Psychiatric: denies: Depression - Endocrine Endocrine: denies: Polydypsia - All Other Systems All Other Systems: reports: Reviewed and negative Prior Level of Functionality: Living independently with his , gardening and maintaining their property. His injury causing his hemothorax was caused by a fall while cleaning out a shed. Exam - Vital Signs Vital Signs: Vital Signs x48h Temp Pulse Resp BP Pulse Ox 02/27/24 10:53 73 16 94/49 L 96 02/27/24 10:32 36.7 C 70 20 102/52 L 100 - Physical Exam General Appearance: positive: No acute distress Eyes Bilateral: positive: Normal inspection ENT: positive: ENT inspection nml Respiratory: positive: Chest non-tender, No respiratory distress, Other (chest tube site well healed) Cardiovascular: positive: Regular rate & rhythm, Other (observed on the monitor, pacer dependent) Peripheral Pulses: positive: 2+ Abdomen: positive: Non-tender, Other (umbilical hernia, easily reduced. cloudy urine in bag) Back: positive: Nml inspection Skin: positive: Color nml Extremities: positive: Non-tender, Pedal edema (2+) Neurologic/Psychiatric: positive: Oriented x3 Sepsis Event Note (H) - Evaluation Current Stage of Sepsis: Sepsis Possible source of Sepsis: positive: Genitourinary Sepsis Associated Organ Dysfunction: hypotension, leukocytosis - Sepsis Criteria Sepsis Criteria: WBC count greater than 12,000 or less than 4000 Conclusion/Plan - Problem List (1) Sepsis Conclusion/Plan: Sepsis with probable urinary source and gram-negative bacteremia. Patient has had some hypotension with systolic blood pressure running in the 90s. His normal blood pressure is in the low 100s at the recommendation of his language instructor. He takes Entresto, metoprolol [place] [id number] indicating systemic infection. (2) UTI (urinary tract infection) Conclusion/Plan: Bacteriuria noted last week. At that time the patient was asymptomatic therefore treatment was not instituted. He has an indwelling Pardo catheter. He has had multiple urological consultations and has failed voiding trials. Current Pardo catheter has been in about a week. Qualifiers: Urinary tract infection type: acute cystitis Hematuria presence: without hematuria Qualified Code(s): N30.00 - Acute cystitis without hematuria (3) Congestive heart failure Conclusion/Plan: Judicious fluid management. At baseline this patient takes furosemide 40 mg twice daily, metoprolol 50 mg twice daily Entresto / daily. He is not having increased edema of his lower extremities. He has 2+ edema of the left lower extremity which is his baseline. (4) Full code status Conclusion/Plan: Brief discussion at the bedside. Patient remains wishes to be full code. He na mes his as his surrogate decision maker. - Lab Results Fish Bones: 02/27/24 10:44 02/27/24 10:44 - Other Other Results/Comments: Rhythm tracing observed patient is pacemaker dependent.
[2024-02-27] MEDS: cefTRIAXone 1 GM in SODIUM CHLORIDE 0.9% MINIBAG 100 ML IV SCH (13:47)
--- NOTE | 2024-02-27 14:18 | PHARMACY PROGRESS NOTE ---
- Best Possible Medication History Admit Date and Time: 02/27/24 1137 Processed by: Pharmacy Medications reviewed in ED?: Yes Medication History completed: Yes Patient Interview: Completed Secondary Source(s): Insurance records As the person ultimately responsible for medication therapy, providers are able to order a medication from an existing home medication list in [facility] via the "Reconcile Routine" prior to Confirmation of that medication by it support manager. Such practice is discouraged except when the physician, in their clinical judgment, deems that a medical need exists for a medication without regard to previous use.
[2024-02-27] MEDS: SODIUM CHLORIDE FLUSH 0.9% 10 ML SYRINGE IVP SCH (17:52)
[2024-02-27] MEDS: guaiFENesin/DEXTROMETHORPHAN 10 ML UDC PO PRN (18:47)
[2024-02-27] MEDS: ACETAMINOPHEN 325 MG TABLET PO PRN (19:35)
[2024-02-27] MEDS: FUROSEMIDE 40 MG TABLET PO SCH (21:05)
[2024-02-27] MEDS: GABAPENTIN 300 MG CAPSULE PO SCH (21:06)
[2024-02-27] MEDS: METOPROLOL SUCCINATE 25 MG TABLET PO SCH (21:06)
[2024-02-27] MEDS: TAMSULOSIN 0.4 MG CAPSULE PO SCH (21:06)
[2024-02-28 08:18] VITALS: O2SAT 91
[2024-02-28] MEDS: ASPIRIN EC 81 MG TABLET PO SCH (08:30)
[2024-02-28] MEDS: APIXABAN 5 MG TABLET PO SCH (08:30)
[2024-02-28] MEDS: ATORVASTATIN 40 MG TABLET PO SCH (08:30)
[2024-02-28] MEDS: ENTRESTO PO SCH (10:38)
--- NOTE | 2024-02-28 11:23 | Discharge Plan ---
Discharge Plan Problem Reviewed?: Yes Disposition: Home, Self Care Condition: Stable Prescriptions: Amox/Clav 875/125 [Augmentin 875/125 Tab] 1 tablet PO Q12H 14 Days #28 tablet Diet: Regular Activity Restrictions: No Restrictions Shower Restrictions: No Driving Restrictions: No Assistance Devices: Cane Weight Bearing: Full Weight Instruction Topics: Catheter Indwelling Urinary Dc Health Concerns: Unfortunately we have been unable to get the catheter out of your bladder. The catheter that sits your bladder certainly acts as a nidus for bacteria and infection. I think that this episode has illustrated the need to either get the catheter out or find a way to learn to do intermittent straight cath. Plan of Treatment: Urology follow-up. I will send a copy of my discharge summary over to Dr. Yeager in [place]. I will also send a copy of the note over to Dr. Carreon here at [facility] if you would like to see him.[phone] Care Goals: I think a great goal would be to avoid having a problem like this again! This may be hard with an indwelling catheter.You have gotten antibiotics in the hospital today that we will cover you until tomorrow morning. However, I would recommend picking up the Augmentin at [email or web address] this afternoon. Assessment: Urinary tract infection with indwelling catheter, leading to bacteria in the blood, leading to sepsis. No Smoking: If you smoke, Please STOP! Call for help. Follow-up with: Joel Carreon MD [Provider Admit Priv/Credential] - Sukhdev Carreno MD [Physician No Access] -
--- NOTE | 2024-02-28 11:43 | DISCHARGE SUMMARY ---
"Discharge Summary Admit Date: 02/27/24 Discharge Date: 02/28/24 Discharging Provider: Alyssa Ruvalcaba PA-C Primary Care Provider: Temo Kenny Code Status: Attempt Resuscitation Condition at Discharge: Stable Discharge Disposition: 01 Home, Self Care - DIAGNOSES Admission Diagnoses: sepsis Urinary tract infection CHF Full code status Discharge Diagnoses with Status of Each Condition: Sepsis Was treated with IV Rocephin while inpatient. Urinary cultures returned with pansensitive E. coli. After being seen in the emergency department did not have any fevers. Patient runs a low blood pressure normally continued to have low blood pressure but was asymptomatic was walking without any dizziness. He did not have any tachycardia. Maintained saturations on room air. I considered removal of his indwelling Pardo catheter. He has had several failed voiding trials. I decided not to remove the Pardo because we do not have urology coverage at this time and should we have difficulty getting the catheter reinserted we would have no options for replacement other than transfer to a different facility which is not in the patient's best interest. Positive blood cultures E. coli. Sensitivities are pending however urinary sensitivities have been returned and is reasonable to think this is the same bacteria. Patient will be sent home on 2 weeks of Augmentin therapy. Urinary tract infection Indwelling Pardo catheter. Patient is been seen by urology. He will follow-up with urology. He has seen Dr. Carreno in [place] he would like urological second opinion and is open to seeing our urologist at [facility]. Records have been sent to Dr. Carreon for further review. - HPI History of Present Illness: From H&P: 84-year-old male who had a fall resulting in rib fractures and hemothorax and an 8-day admission to [facility] in [place] on January 03. During that admission he received chest tube spent several days in the ICU but recovered well. Unfortunately he had urinary retention during that admission which has not resolved since discharge. He has had several trials of removal of a urinary catheter. He has been seen by Dr. Carreno at the [facility], and is seeking urological second opinion at [facility]. Earlier this week when seen in the office by Dr. Carreno, bacteruria was noted. He was prescribed Bactrim but did not take it secondary to having no signs or symptoms of a urinary tract infection. Unfortunately several days later he developed fever and chills, specifically 4 days ago developed fever and chills. Due to this was seen in our emergency department last night. Blood cultures were drawn and 2 out of 2 bottles came back with gram-negative bacilli likely E. coli. He had a temp at home up to 103 last night and returns today. He received Rocephin in our emergency department last night. He saw his primary care doctor at [facility] on November 23. Had a PSA drawn around that time it was 1.6. Also had a negative digital rectal exam. He denies any history of problems with BPH. Or difficulty voiding. - CONSULTS | PROCEDURES Consultations: none - HOSPITAL COURSE Hospital Course: Had received Rocephin in the emergency department the night prior to admission was called back for positive blood cultures with presumed urinary source given the fact that this is E. coli bacteremia and patient had E. coli in his urine recently. His senior software development engineer at [facility] has him medicated to keep his blood pressure in the low 100s. And this is where it stayed. He was maintained on his home medications. Did have an elevated white blood cell count. Of 13,000 prior to a dmission and 12.1 on admission. By the morning of hospital day 2 he had been afebrile for the entirety of his stay. He has been feeling well. He was eating drinking and well. He was producing good urine. We did leave his Pardo in place as he has previously failed Pardo removal. He will follow-up with urology. He has established relationships in the outpatient environment. - ALLERGIES Allergies/Adverse Reactions: Allergies Allergy/AdvReac Type Severity Reaction Status Date / Time shellfish derived Allergy Anaphylaxis Verified 02/27/24 10:39 shellfish Allergy Anaphylaxis Uncoded 02/27/24 10:39 - MEDICATIONS Home Medications: Ambulatory Orders Medication Instructions Recorded Confirmed Furosemide 80 mg PO BID 03/01/17 02/27/24 Metoprolol Succinate [Toprol Xl] 50 mg PO BID 03/01/17 02/27/24 Atorvastatin [Lipitor] 40 mg PO DAILY 07/26/21 02/27/24 Apixaban [Eliquis] 5 mg PO BID 02/26/24 02/27/24 Aspirin [Vazalore] 81 mg PO DAILY 02/26/24 02/27/24 Sacubitril/Valsartan [Entresto 24 1 each PO DAILY 02/26/24 02/27/24 mg-26 mg Tablet] Gabapentin [Neurontin] 300 mg PO TID 02/27/24 02/27/24 Spironolactone [Aldactone] 12.5 mg PO DAILY 02/27/24 02/27/24 Tamsulosin [Flomax] 0.8 mg PO HS 02/27/24 02/27/24 Acetaminophen [Tylenol] 650 mg PO Q4HR PRN tab 02/28/24 Amox/Clav 875/125 [Augmentin 1 tablet PO Q12H 14 Days #28 tablet 02/28/24 875/125 Tab] - LABS Result Diagrams: 02/27/24 10:44 02/27/24 10:44 - SEPSIS Current Stage of Sepsis: Sepsis Possible source of Sepsis: Genitourinary Sepsis Criteria: WBC count greater than 12,000 or less than 4000"
[2024-02-28 12:27] VITALS: BP 91/46
--- NOTE | 2024-02-28 12:29 | ADVANCE CARE PLANNING NOTE ---
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 He enjoys gardening and keeping up their property here on [employer] [address]. He feels that his active lifestyle is keeping him healthy. 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 On January 03, He was working with his son, cleaning out a shed on their property when he was startled by some rodents within a wall. this caused him to fall backwards off a ladder, striking the left side of his chest, resulting in rib fractues and a hemothorax. He had a chest tube for drainage, and in the process developed urinary retention. He has failed several attempts at taylor removal, and has been counseled by urology, Dr Carreno, to consider intermittent straight cath. He has been resistant to this idea, and was noted to have bacteruria earlier in the week, then began to run fevers and feel unwell at home. blood cultures positive for E coli. Urine cultures positive for alcazar sensitive E Coli. He has been treated here for 24 hours, appears well. The plan is to discharge today to home with po Augmentin. He denies ever being introducted to POLST form Goals of Care: Would like every attempt at resusitation, but would not want to live life in a chronically disabled condition. Plan: Full code. Prolong life by all medically effective means, but discontinue care should prognosis be poor. He would like his spouse to be his surrogate decision maker. He was educated that many times, at his age, with his co morbidities, prognosis is often poor after resuscitative attempts Code Status: Attempt Resuscitation Time spent on advance care plannin minutes
== END 2024-02-28 13:55 | disposition home or self-care (01) ==
LOC: ED 10:15 → MS2 11:37
PROVIDERS: ADMIT Physician Assistant Medical; ATTEND Physician Assistant Medical
DX: T83.511A Infection and inflammatory reaction due to indwelling urethral catheter, initial encounter (principal); A41.51 Sepsis due to Escherichia coli [E. coli]; N30.00 Acute cystitis without hematuria; I50.9 Heart failure, unspecified; D72.829 Elevated white blood cell count, unspecified; R33.9 Retention of urine, unspecified; I48.91 Unspecified atrial fibrillation; Z79.01 Long term (current) use of anticoagulants; Z79.899 Other long term (current) drug therapy; Z95.0 Presence of cardiac pacemaker; Z96.0 Presence of urogenital implants
CPT/HCPCS: 36415; 80053; 83605; 83690; 85025; 87040; 96365; 96366; 99285; A9270; G0378

== ENCOUNTER 2024-06-27 14:36 | Inpatient (IN) ==
--- NOTE | 2024-06-27 14:44 | ED Physician Documentation ---
History of Present Illness Stated complaint Stated Complaint: Chief complaint Chief Complaint: General Additonal information Additional information: This is a very pleasant 84-year-old gentleman who I saw on the fourth of this month. He has a history of needing to self catheterize since a major trauma in November. He was seen with fever and a cough and was weak and dizzy with blood pressures of 60/40. He had already been on nitrofurantoin and his blood pre ssure improved with IV fluids. He had a white count of 13, with mildly depressed renal function, persistently positive urinalysis, chest x-ray demonstrating a small left pleural effusion with potential infection or inflammation. He was changed over to Cipro. He has developed a lot of aches and pains he thinks from the Cipro but today was weak and dizzy and EMS was summoned and he was noted to have hypotension again at about 70/50. In the interim, since his last visit on the both blood and urine cultures were negative. His urinalysis was positive so I suspect his urine may have been sterilized by the nitrofurantoin he was already on. Previous to that he does have a history of admission for bacteremia related to UTI in February of this year. Meds/Allgy Home Medications Ambulatory Orders Medication Instructions Recorded Confirmed furosemide 40 mg tablet 80 mg PO BID 03/01/17 06/27/24 metoprolol succinate 25 mg 50 mg PO BID 03/01/17 06/27/24 tablet,extended release 24 hr atorvastatin 10 mg tablet 40 mg PO DAILY 07/26/21 06/27/24 apixaban 5 mg tablet (Eliquis) 5 mg PO BID 02/26/24 06/27/24 aspirin 81 mg capsule (Vazalore) 81 mg PO DAILY 02/26/24 06/27/24 sacubitril 24 mg-valsartan 26 mg 1 ea PO DAILY 02/26/24 06/27/24 tablet (Entresto) gabapentin 300 mg capsule 300 mg PO BID 02/27/24 06/27/24 spironolactone 25 mg tablet 12.5 mg PO DAILY 02/27/24 06/27/24 (Aldactone) tamsulosin 0.4 mg capsule 0.8 mg PO HS 02/27/24 06/27/24 acetaminophen 325 mg tablet 650 mg (2 x 325 mg) PO Q4HR PRN 02/28/24 06/27/24 Pain 1 to 4, or Fever ciprofloxacin HCl 500 mg tablet 500 mg PO BID #20 tabs 06/17/24 06/27/24 finasteride 5 mg tablet 5 mg PO DAILY 06/27/24 06/27/24 Allergies Allergies Allergy/AdvReac Type Severity Reaction Status Date / Time shellfish derived Allergy Anaphylaxis Verified 06/27/24 15:00 shellfish Allergy Anaphylaxis Uncoded 06/27/24 15:00 [facility] Social History Social History (Updated 06/27/24 @ 15:04 by Jevon Davis RN) Smoking Status: Never smoker Do you dip or chew tobacco?: No Patient requests smoking cessation consult: No Initiate information on smoking cessation: No Living arrangement: At home Living Condition: With spouse/s.o. Relationship: Level: Independent Do you feel safe in your home environment?: Yes Suffered physical, verbal, emotional, or financial abuse?: No History of Abuse: No ETOH Use: None Substance Use: denies use POLST Patient has POLST: No POLST Status: Full Code Exam Constitutional normal general appearance and no apparent distress Respiratory breath sounds equal bilaterally and normal respiratory effort Cardiovascular normal heart rate noted and regular rhythm noted Gastrointestinal Nontender reducible umbilical hernia that he says is not bothering him. No other abdominal tenderness. Results Vitals Vitals: Vital Signs - 24 hr 06/27/24 15:01 06/27/24 15:53 Temperature 36.7 C Temperature Source Temporal Artery Scan Pulse Rate 70 70 Respiratory Rate 18 18 Blood Pressure 96/46 L 110/57 L O2 Saturation 96 96 O2 Source Room air Room air Pain Intensity 6 5 Oxygen O2 Source Room air Labs Labs: Laboratory Tests 06/27/24 06/27/24 15:08 15:50 WBC 23.2 H RBC 3.46 L Hgb 10.9 L Hct 34.6 L MCV 100.0 H MCH 31.5 H MCHC 31.5 L RDW 14.4 Plt Count 199 MPV 9.5 Neut # (Auto) 21.1 H Lymph # (Auto) 0.6 L [place] # (Auto) 1.2 H Eos # (Auto) 0.0 Baso # (Auto) 0.1 Absolute Nucleated RBC 0.00 Band Neuts % (Manual) Not Reportable Abnorm Lymph % (Manual) Not Reportable Nucleated RBC % 0.0 Neutrophils # (Manual) Not Reportable Lymphocytes # (Manual) Not Reportable Monocytes # (Manual) Not Reportable Eosinophils # (Manual) Not Reportable Basophils # (Manual) Not Reportable Differential Comment MANUAL=AUTO DIFF Manual Slide Review Indicated Platelet Estimate NORMAL (130-450,000) Platelet Morphology NORMAL APPEARANCE RBC Morph Micro Appear NORMAL APPEARANCE Sodium 137 Potassium 4.0 Chloride 103 Carbon Dioxide 27 Anion Gap 7.0 BUN 35 H Creatinine 1.3 Estimated GFR (MDRD) 52 L Glucose 138 H Lactic Acid 2.5 H Calcium 9.0 Total Bilirubin 1.2 H AST 12 ALT 16 Alkaline Phosphatase 44 Total Protein 5.9 L Albumin 3.3 Globulin 2.6 Albumin/Globulin Ratio 1.3 Urine Color YELLOW Urine Clarity SL. CLOUDY Urine pH 6.0 Ur Specific Sprague 1.015 Urine Protein TRACE Urine Glucose (UA) NEGATIVE Urine Ketones NEGATIVE Urine Occult Blood NEGATIVE Urine Nitrite NEGATIVE Urine Bilirubin NEGATIVE Urine Urobilinogen 0.2 (NORMAL) Ur Leukocyte Esterase MODERATE H Urine RBC 0-5 Urine WBC >25 H Ur Squamous Epith Cells FEW Squamous Urine Bacteria Few Urine Culture Comments INDICATED Rads (name of study) CT KUB: Relevant Findings:: Final report received (Enlarged prostate, bladder outlet obstruction, left adrenal nodule and cysts, cardiomegaly, possible right basilar pneumonia, diverticulosis) and EMP independent interpretation of test PD Medical Decision Making ED course ED course: 84-year-old gentleman who is catheter dependent was admitted for urosepsis in February with E. coli bacteremia and was seen 10 days ago and now on Cipro but last night he had shaking chills and feels worse. He also has a lot of aches and pains more subacutely which might be from the Cipro. The worry of course was urosepsis with the low blood pressures prehospital and his white count was 23,000, up significantly with a mild lactic acidosis and chronic stable prerenal azotemia on CMP. CT shows no obstruction other than his known bladder outlet obstruction and he was administered Rocephin and IV fluids and I spoke with Dr. Green for admission at 4:15 PM. Discharge Plan Discharge Patient Disposition: [facility] DC/Xfer Condition: Serious Clinical Impression: Acute UTI Sepsis Qualifiers: Sepsis type: sepsis due to unspecified organism Sepsis acute organ dysfunction status: without acute organ dysfunction Qualified Code(s): A41.9 - Sepsis, unspecified organism Prescriptions: No Action furosemide 40 MG tablet 80 mg PO BID metoprolol succinate 25 MG tablet extended release 24 hr 50 mg PO BID atorvastatin 10 MG tablet 40 mg PO DAILY Eliquis 5 MG tablet 5 mg PO BID Entresto 1 EACH tablet 1 ea PO DAILY Vazalore 81 MG capsule 81 mg PO DAILY spironolactone [Aldactone] 25 MG tablet 12.5 mg PO DAILY Patient Comments: TAKE 1/2 TABLET BY MOUTH DAILY tamsulosin 0.4 MG capsule 0.8 mg PO HS gabapentin 300 MG capsule 300 mg PO BID Patient Comments: take 1 capsule by mouth three times a day acetaminophen 325 MG tablet 650 mg PO Q4HR PRN (Reason: Pain 1 to 4, or Fever) 0RF ciprofloxacin HCl 500 mg tablet 500 mg PO BID Qty: 20 0RF finasteride 5 mg tablet 5 mg PO DAILY Patient Comments: take 1 tablet by mouth once daily Print Language: Indonesian Stand Alone Forms: PCP List
[2024-06-27] MEDS: SODIUM CHLORIDE 0.9% 1,000 ML IV STA (15:01)
[2024-06-27 15:16] LABS: BASOPHILS # (AUTO) 0.1 10^3/uL (0.0-0.1); BASOPHILS % (AUTO) 0.3 %; EOSINOPHILS % (AUTO) 0.1 %; HCT - HEMATOCRIT 34.6 % (42.0-52.0); HGB - HEMOGLOBIN 10.9 g/dL (14.0-18.0); LYMPHOCYTES # (AUTO) 0.6 10^3/uL (1.5-3.5); LYMPHOCYTES % (AUTO) 2.7 %; MEAN CORPUSCULAR HEMOGLOBIN 31.5 pg (27.0-31.0); MEAN CORPUSCULAR HGB CONC 31.5 g/dL (32.0-36.0); MEAN PLATELET VOLUME 9.5 fL (7.4-11.4); MONOCYTES # (AUTO) 1.2 10^3/uL (0.0-1.0); MONOCYTES % (AUTO) 5.3 %; NEUTROPHILS # (AUTO) 21.1 10^3/uL (1.5-6.6); PLT - PLATELET COUNT 199 10^3/uL (130-450); RED BLOOD COUNT 3.46 10^6/uL (4.70-6.10); RED CELL DISTRIBUTION WIDTH 14.4 % (12.0-15.0); WHITE BLOOD COUNT 23.2 x10^3/uL (4.8-10.8)
[2024-06-27 15:17] LABS: SLIDE REVIEW? Indicated
[2024-06-27 15:32] LABS: ALBUMIN 3.3 g/dL (3.2-5.5); ALBUMIN/GLOBULIN RATIO 1.3 (1.0-2.2); BILIRUBIN,TOTAL 1.2 mg/dL (0.2-1.0); CREATININE 1.3 mg/dL (0.6-1.3); LACTIC ACID, VENOUS 2.5 mmol/L (0.5-2.2); TOTAL PROTEIN 5.9 g/dL (6.4-8.9)
[2024-06-27 16:03] LABS: BILIRUBIN,URINE NEGATIVE (NEGATIVE); GLUCOSE, URINE (UA) NEGATIVE (NEGATIVE); KETONES,URINE (UA) NEGATIVE (NEGATIVE); LEUKOCYTE ESTERASE, URINE MODERATE (NEGATIVE); NITRITE,URINE NEGATIVE (NEGATIVE); OCCULT BLOOD,URINE NEGATIVE (NEGATIVE); PROTEIN,URINE TRACE mg/dL (NEGATIVE); UROBILINOGEN,URINE 0.2 (NORMAL) E.U./dL (NORMAL)
--- NOTE | 2024-06-27 16:03 | CT Report ---
PROCEDURE: CT Abdomen/Pelvis WO INDICATIONS: UTI w hypotension r/o obstruction TECHNIQUE: A CT scan of the abdomen and pelvis was performed without the use of intravenous contrast. Images we re recorded and evaluated at appropriate window settings. Reformats: coronal and sagittal. For radiat ion dose reduction, the following was used: automated exposure control, adjustment of mA and/or kV ac cording to patient size. COMPARISON: Chest x-ray from today, chest x-ray from 06/17/2024. FINDINGS: Image quality: Diagnostic. Lower chest: Pacemaker, moderate cardiomegaly. Minimal patchy right basilar infiltrate consistent wit h minimal patchy pneumonia, possibly bronchopneumonia or aspiration pneumonia. Liver: No contour-deforming mass. Gallbladder: No radiopaque stones or wall thickening. Biliary tree: No intrahepatic or extrahepatic dilation, accounting for age. Spleen: No splenomegaly. Pancreas: No pancreatic ductal dilation. Adrenals: 1.9 x 2.5 cm left adrenal nodule. Subcentimeter right adrenal nodule. Kidneys and ureters: Small probable hyperdense cysts involving the bilateral kidneys. Punctate calcif ications, right kidney. Stomach, bowel and peritoneum: Sigmoid diverticulosis. No acute diverticulitis noted. No pathologic f ree fluid. Lymph nodes: No central or retroperitoneal adenopathy. Vessels: No infrarenal aortic aneurysm. Reproductive organs: Enlarged prostate. Bladder: Distended bladder with wall thickening suggesting possible bladder outlet obstruction. Pelvic lymph nodes: No adenopathy by size criteria. Bones: No aggressive osseous abnormality. Diffuse lumbar degenerative change.. Other: No significant ventral or inguinal hernia. IMPRESSION: 1. Enlarged prostate. 2. Distended bladder with wall thickening suggesting possible bladder outlet obstruction. 3. No hydronephrosis. Punctate right renal calcifications. 4. There is an indeterminant left adrenal nodule measuring 1.9 x 2.5 cm. There are also bilateral sma ll probable hyperdense renal cysts. 5. Moderate cardiomegaly. 6. Subtle peribronchial infiltrates in the right lung base. Consider aspiration pneumonia is a possib ility. 7. Sigmoid diverticulosis. Comment: Consider obtaining previous studies to evaluate for interval change of the left adrenal lesi on as well as potential comparison of multiple small hyperdense renal lesions. Alternatively, these c an be worked up further utilizing adrenal/renal protocol CT. Reviewed by: Aaron Marcos MD on 06/27/2024 4:02 PM PDT Approved by: Aaron Marcos MD on 06/27/2024 4:02 PM PDT Station ID: [id number]
[2024-06-27] MEDS: cefTRIAXone 1 GM VIAL IVP STA (16:05)
[2024-06-27 16:07] LABS: DIFFERENTIAL COMMENT MANUAL=AUTO DIFF; PLATELET ESTIMATE, MANUAL NORMAL (130-450,000) (NORMAL); PLATELET MORPHOLOGY NORMAL APPEARANCE (NORMAL); RBC MORPHOLOGY (MULTIPLE) NORMAL APPEARANCE (NORMAL)
[2024-06-27 16:09] LABS: CLARITY,URINE SL. CLOUDY (CLEAR); RBC,URINE 0-5 /HPF (0-5); SQUAMOUS EPITHELIAL CELL,UR FEW Squamous (<= Few); WBC,URINE >25 /HPF (0-3)
[2024-06-27 16:10] LABS: BACTERIA,URINE Few /HPF (None Seen)
--- NOTE | 2024-06-27 16:28 | XRAY Report ---
PROCEDURE: XR Chest 1V INDICATIONS: Sepsis TECHNIQUE: One view of the chest was acquired. COMPARISON: 06/17/2024 FINDINGS: Surgical changes and devices: Dual-lead left-sided ICD. Lungs and pleura: Diffuse thickening of the interstitial markings. Blunting left costophrenic sulcus and hazy oblique opacity in the left lateral lower lung. Mediastinum: Mild cardiomegaly. Stable aortic contour. Central vascular congestion, similar compared to the prior exam. Bones and chest wall: No suspicious bony lesions. Overlying soft tissues appear unremarkable. IMPRESSION: Multifocal mixed interstitial and left lung base alveolar opacity with probable trace left effusion a nd left scarring. Underlying interstitial pneumonitis may be present. Chronic interstitial edema is s uspected. Stable cardiomegaly. Reviewed by: Aleah Aguirre MD on 06/27/2024 4:27 PM PDT Approved by: Aleah Aguirre MD on 06/27/2024 4:27 PM PDT Station ID: [id number]
--- NOTE | 2024-06-27 17:10 | HISTORY & PHYSICAL EXAMINATION ---
Chief Complaint Chief Complaint Chief Complaint: wekness and shaking Meds/Allgy Home Medications Ambulatory Orders Medication Instructions Recorded Confirmed apixaban 5 mg tablet (Eliquis) 5 mg PO BID 02/26/24 06/27/24 aspirin 81 mg capsule (Vazalore) 81 mg PO DAILY 02/26/24 06/27/24 sacubitril 24 mg-valsartan 26 mg 1 ea PO BID 02/26/24 06/27/24 tablet (Entresto) gabapentin 300 mg capsule 300 mg PO TID 02/27/24 06/27/24 spironolactone 25 mg tablet 12.5 mg PO DAILY 02/27/24 06/27/24 (Aldactone) tamsulosin 0.4 mg capsule 0.8 mg PO HS 02/27/24 06/27/24 acetaminophen 325 mg tablet 650 mg (2 x 325 mg) PO Q4HR PRN 02/28/24 06/27/24 Pain 1 to 4, or Fever ciprofloxacin HCl 500 mg tablet 500 mg PO BID #20 tabs 06/17/24 06/27/24 atorvastatin 40 mg tablet 40 mg PO DAILY 06/27/24 06/27/24 finasteride 5 mg tablet 5 mg PO DAILY 06/27/24 06/27/24 furosemide 80 mg tablet 80 mg PO BID 06/27/24 06/27/24 metoprolol succinate 50 mg 50 mg PO BID 06/27/24 06/27/24 tablet,extended release 24 hr Allergies Allergies Allergy/AdvReac Type Severity Reaction Status Date / Time shellfish derived Allergy Anaphylaxis Verified 06/27/24 15:00 shellfish Allergy Anaphylaxis Uncoded 06/27/24 15:00 [facility] Medical History Medical History Pacemaker Pulmonary nodules seen on CT incidental. BPH w urinary obs/LUTS straight cath>>taylor twice at [facility] 12/2023. Seen by Urology at [facility], and here with Dr. Carreon Hemothorax with fall 12/2023 Ribs, multiple fractures Atrial fibrillation 01/04/24 with transfer to [facility] Family History Family History (Updated 06/27/24 @ 18:59 by Sabi Green MD) Mother Senescence Father COPD (chronic obstructive pulmonary disease) Brother CAD (coronary artery disease) Sister Narcolepsy cataplexy syndrome Daughter Well adult exam Social History Social History (Updated 06/27/24 @ 15:04 by Jevon Davis RN) Smoking Status: Former smoker Do you dip or chew tobacco?: No Patient requests smoking cessation consult: No Initiate information on smoking cessation: No Living arrangement: At home Living Condition: With spouse/s.o. Relationship: Level: Independent Home Mobility Equipment: Cane Do you feel safe in your home environment?: Yes Suffered physical, verbal, emotional, or financial abuse?: No History of Abuse: No ETOH Use: None Substance Use: denies use POLST Patient has POLST: No POLST Status: Full Code Review of Systems Pleasant elderly white male, accompanied by at the bedside, in no acute distress. Just feels like a limp noodle and so weak Constitutional Reports: Chills and Weakness; Denies: Night sweats or Changes in appetite or eating habits Eyes Denies: Change in vision Ears, nose, mouth, and throat Reports: Neck pain; Denies: Ear pain, Change in hearing or Throat swelling Cardiovascular Reports: other (chronic edema-does not wear compression stockings); Denies: chest pain, palpitations, shortness of breath with exertion or shortness of breath when lying down Respiratory Denies: Shortness of breath, Cough, Change in phlegm color or Wheezing Gastrointestinal Denies: Abdominal pain, Nausea, Vomiting or Diarrhea Genitourinary Reports: Urinary frequency, Urinary urgency, Nocturia, Difficulty urinating, Nighttime urination, Difficulty starting urination and Urinary hesitancy Musculoskeletal Reports: Neck pain, Joint pain, Muscle weakness and Other (neck pain radiates to shoulders, no nuchal rigidity) Integumentary/Breast Reports: Other (chronic venous stasis); Denies: Rash Neurological Reports: General weakness, Weakness in extremities and Other (foot cramping bilaterally); Denies: Headache or Memory problems Psychiatric Denies: Depression, Anxiety or Memory loss Endocrine Denies: Excessive urination, Excessive thirst or Polyphagia Hematologic/Lymphatic Denies: Easy bruising Allergic/Immunologic Denies: Hives, Throat swelling or Wheezing Exam Constitutional no apparent distress HENMT normocephalic Eyes PERRL Neck/C-Spine visual inspection normal Some tenderness to palpation on cervical spine. Pain when turning head to right. Patient able to move neck to chest without pain. Lymph no lymphadenopathy noted Chest inspection of chest normal Respiratory breath sounds equal bilaterally Cardiovascular normal heart rate noted Gastrointestinal abdomen normal to inspection and nontender to palpation Genitourinary no CVA tenderness Back/Pelvis spine normal to inspection Extremities no tenderness Discoloration from venous stasis noted bilaterally to lower extremities with hemocyterin spotting, darkening patches and venous perforators. Neurology speech normal Psychiatry oriented x3 Skin no rash, no lesions and no jaundice Conclusion/Plan Lab Results 06/27/24 15:08 06/27/24 15:08 Core Measures Anticipated LOS I expect patient to be DC'd or transferred within 96 hours.: Yes DVT/VTE - Prophylaxis VTE/DVT Prophylaxis med ordered at admit?: Yes
--- NOTE | 2024-06-27 18:15 | HISTORY & PHYSICAL EXAMINATION ---
History of Present Illness Admitted From Admitted From:: ER History Obtained From Records Reviewed: yes History obtained from: patient interview, chart review Exam Limitations: none History of Present Illness HPI Comment/Other: Patient is an 84-year-old male presenting today in the ER with sudden onset this morning shaking and weakness. Was seen in the ER 10 days ago for a UTI and given 8 to 9 day course of ciprofloxacin. Complaining today of new pain in his neck when he ambulates his neck to the right only as well as pain in his shoulders extending to his buttocks, his left hip and bilaterally in both of his feet as well as both hands. Patient states that the pain in his feet feels different than his neuropathy and the pain in his feet was more like a cramping pain. Describes the pain as severe; it started in bed last night and it "lasted a long time". Denies any chest pain, abdominal pain, shortness of breath, stomach pain, tachycardia or arrhythmias, memory problems, rashes, night sweats, visuala changes, loss of appetite or depression. He has discussed a prostatectomy with his urologist. His urologist wanted to try medication intervention including finasteride before pursuing surgical interventions. States that he began self-catheterization after hospitalization in December at 2 times a day and that he is still retaining between 200 to 500 mL of urine after catheterization. Patient states that he did not take his medications today. He has been taking his medications appropriately otherwise. He endorses 1 extra strength Tylenol pill 2 days ago for pain. He also went to his net web developer who gave him an unknown herb to promote urination 3 weeks ago. He has been taking 6 pills 3 times a day for about 3 days of this unknown herb. States that he had a PSA of 4 last month and the digital rectal exam was unremarkable. Meds/Allgy Home Medications Ambulatory Orders Medication Instructions Recorded Confirmed apixaban 5 mg tablet (Eliquis) 5 mg PO BID 02/26/24 06/27/24 aspirin 81 mg capsule ([place]) 81 mg PO DAILY 02/26/24 06/27/24 sacubitril 24 mg-valsartan 26 mg 1 ea PO BID 02/26/24 06/27/24 tablet (Entresto) gabapentin 300 mg capsule 300 mg PO TID 02/27/24 06/27/24 spironolactone 25 mg tablet 12.5 mg PO DAILY 02/27/24 06/27/24 (Aldactone) tamsulosin 0.4 mg capsule 0.8 mg PO HS 02/27/24 06/27/24 acetaminophen 325 mg tablet 650 mg (2 x 325 mg) PO Q4HR PRN 02/28/24 06/27/24 Pain 1 to 4, or Fever ciprofloxacin HCl 500 mg tablet 500 mg PO BID #20 tabs 06/17/24 06/27/24 atorvastatin 40 mg tablet 40 mg PO DAILY 06/27/24 06/27/24 finasteride 5 mg tablet 5 mg PO DAILY 06/27/24 06/27/24 furosemide 80 mg tablet 80 mg PO BID 06/27/24 06/27/24 metoprolol succinate 50 mg 50 mg PO BID 06/27/24 06/27/24 tablet,extended release 24 hr Allergies Allergies Allergy/AdvReac Type Severity Reaction Status Date / Time shellfish derived Allergy Anaphylaxis Verified 06/27/24 15:00 shellfish Allergy Anaphylaxis Uncoded 06/27/24 15:00 [facility] Medical History Medical History Pacemaker Pulmonary nodules seen on CT incidental. BPH w urinary obs/LUTS straight cath>>taylor twice at [facility] 12/2023. Seen by Urology at [facility], and here with Dr. Carreon Hemothorax with fall 12/2023 Ribs, multiple fractures Atrial fibrillation 01/04/24 with transfer to [facility] Family History Family History (Updated 06/27/24 @ 18:58 by Sabi Green MD) Mother Senescence Father COPD (chronic obstructive pulmonary disease) Brother CAD (coronary artery disease) Sister Narcolepsy cataplexy syndrome Daughter Well adult exam Social History Social History (Updated 06/27/24 @ 15:04 by Jevon Davis RN) Smoking Status: Former smoker Do you dip or chew tobacco?: No Patient requests smoking cessation consult: No Initiate information on smoking cessation: No Living arrangement: At home Living Condition: With spouse/s.o. Relationship: Level: Independent Home Mobility Equipment: Cane Do you feel safe in your home environment?: Yes Suffered physical, verbal, emotional, or financial abuse?: No History of Abuse: No ETOH Use: None Substance Use: denies use POLST Patient has POLST: No POLST Status: DNR Review of Systems Constitutional Reports: Chills and Weakness; Denies: Night sweats or Changes in appetite or eating habits Eyes Denies: Change in vision Ears, nose, mouth, and throat Reports: Neck pain; Denies: Ear pain, Change in hearing or Throat swelling Cardiovascular Reports: other (chronic edema-does not wear compression stockings); Denies: chest pain, palpitations, shortness of breath with exertion or shortness of breath when lying down Respiratory Denies: Shortness of breath, Cough, Change in phlegm color or Wheezing Gastrointestinal Denies: Abdominal pain, Nausea, Vomiting or Diarrhea Genitourinary Reports: Urinary frequency, Urinary urgency, Nocturia, Difficulty urinating, Nighttime urination, Difficulty starting urination and Urinary hesitancy Musculoskeletal Reports: Neck pain, Joint pain, Muscle weakness and Other (neck pain radiates to shoulders, no nuchal rigidity) Integumentary/Breast Reports: Other (chronic venous stasis); Denies: Rash Neurological Reports: General weakness, Weakness in extremities and Other (foot cramping bilaterally); Denies: Headache or Memory problems Psychiatric Denies: Depression, Anxiety or Memory loss Endocrine Denies: Excessive urination, Excessive thirst or Polyphagia Hematologic/Lymphatic Denies: Easy bruising Allergic/Immunologic Denies: Hives, Throat swelling or Wheezing Prior Level of Functionality: Completely independent with ADLs. Occasional use of cane for ambulation. Exam Constitutional no apparent distress [facility] normocephalic Eyes PERRL Neck/C-Spine visual inspection normal Some tenderness to palpation on cervical spine. Pain when turning head to right. Patient able to move neck to chest without pain. Lymph no lymphadenopathy noted Chest inspection of chest normal Respiratory breath sounds equal bilaterally Cardiovascular normal heart rate noted Gastrointestinal abdomen normal to inspection and nontender to palpation Genitourinary no CVA tenderness Back/Pelvis spine normal to inspection Extremities no tenderness Discoloration from venous stasis noted bilaterally to lower extremities with hemocyterin spotting, darkening patches and venous perforators. Neurology speech normal Psychiatry oriented x3 Skin no rash, no lesions and no jaundice Sepsis Event Note (H) Evaluation Current Stage of Sepsis: Sepsis Possible source of Sepsis: positive Genitourinary Sepsis Criteria Sepsis Criteria: Suspected or Documented, WBC count greater than 12,000 or less than 4000, MAP less than 65 mmHg, SBP less than 90 mmHg and Metabolic: lactate > 2 mmol/L Conclusion/Plan Problem List (1) Sepsis secondary to UTI: Plan: Due to frequent self-catheterization and bph with luts. Not responding to recent addition of proscar and flomax. Patient recognizes this may take months to work. Plan: Inpatient status Resume proscar and flomax Discontinue straight catheter and I will order taylor. Follow up with Dr. Carreno in two weeks to assess when taylor to be removed. IV levoquin 750 mg daily Repeat lactic acid to assess response to resuscitation (2) Acute hypotension: Plan: Baseline systolic is 105 at home. I will not resume entresto, lasix and spirinolactone until blood pressure increases. (3) BPH w urinary obs/LUTS: Plan: Well documented. Follow up with urologist Dr. Carreno. TURP has been discussed with patient. (4) Chronic systolic heart failure: Plan: On exam, no crackles, no JVD. Chronic venous stasis and leg edema noted. Plan: Low salt diet Daily weights Lasix 20 mg IV push QD PRN depending on weight Resume beta carmen metoprolol and hold off entresto and spirinolactone due to blood pressure (5) Chronic a-fib: Plan: I am resuming metoprolol and eloquis. This is also DVT prophylaxis. (6) Venous stasis dermatitis of both lower extremities: Plan: No evidence of infection. No redness, no heat. Minimal eschar in left [place]. He hates compression stockings and doesn't wear them. I am recommending home compression device he can buy off [employer]. (7) Pulmonary nodules: Plan: Patient states he had repeat CT with PCP and she wasn't concerned, but she referred to paper sorter for follow up next month. Lab Results 06/27/24 15:08 06/27/24 15:08 Core Measures Anticipated LOS I expect patient to be DC'd or transferred within 96 hours.: Yes DVT/VTE - Prophylaxis VTE/DVT Prophylaxis med ordered at admit?: Yes
[2024-06-27] MEDS ORDERED: oxyCODONE 5 MG TABLET PO PRN (18:17)
[2024-06-27] MEDS ORDERED: SODIUM CHLORIDE FLUSH 0.9% 10 ML SYRINGE IVP PRN (18:17)
[2024-06-27] MEDS ORDERED: ONDANSETRON 4 MG/2 ML VIAL IVP PRN (18:17)
[2024-06-27] MEDS ORDERED: ONDANSETRON ODT 4 MG TABLET TL PRN (18:17)
[2024-06-27 18:41] LABS: LACTIC ACID, VENOUS 2.2 mmol/L (0.5-2.2)
[2024-06-27] MEDS: SODIUM CHLORIDE 0.9% 1,000 ML IV SCH (19:37)
[2024-06-27] MEDS: levoFLOXacin 750 MG/150 ML 750 MG/150 ML BAG IV SCH (19:37)
[2024-06-27] MEDS: SODIUM CHLORIDE FLUSH 0.9% 10 ML SYRINGE IVP SCH (19:38)
[2024-06-27] MEDS: GABAPENTIN 300 MG CAPSULE PO SCH (20:50)
[2024-06-27] MEDS: METOPROLOL SUCCINATE 50 MG TABLET PO SCH (20:50)
[2024-06-27] MEDS: APIXABAN 5 MG TABLET PO SCH (20:50)
[2024-06-27] MEDS: TAMSULOSIN 0.4 MG CAPSULE PO SCH (20:50)
[2024-06-27] MEDS: guaiFENesin 100 MG/5 ML UDC PO PRN (21:56)
--- NOTE | 2024-06-28 01:21 | PROVIDER PROGRESS NOTE ---
Hospitalist Cross-cover Note Cross-Cover Note Cross-Cover Note: pt with low bp at this time. metoprolol stopped for now.
[2024-06-28 05:19] LABS: BASOPHILS % (AUTO) 0.2 %; EOSINOPHILS # (AUTO) 0.4 10^3/uL (0.0-0.7); EOSINOPHILS % (AUTO) 3.7 %; HCT - HEMATOCRIT 32.8 % (42.0-52.0); HGB - HEMOGLOBIN 10.4 g/dL (14.0-18.0); LYMPHOCYTES # (AUTO) 0.8 10^3/uL (1.5-3.5); LYMPHOCYTES % (AUTO) 7.3 %; MEAN CORPUSCULAR HEMOGLOBIN 31.8 pg (27.0-31.0); MEAN CORPUSCULAR HGB CONC 31.7 g/dL (32.0-36.0); MEAN CORPUSCULAR VOLUME 100.3 fL (80.0-94.0); MEAN PLATELET VOLUME 9.9 fL (7.4-11.4); MONOCYTES # (AUTO) 0.8 10^3/uL (0.0-1.0); MONOCYTES % (AUTO) 7.4 %; NEUTROPHILS # (AUTO) 8.8 10^3/uL (1.5-6.6); NEUTROPHILS % (AUTO) 80.9 %; PLT - PLATELET COUNT 166 10^3/uL (130-450); RED BLOOD COUNT 3.27 10^6/uL (4.70-6.10); RED CELL DISTRIBUTION WIDTH 14.5 % (12.0-15.0); WHITE BLOOD COUNT 10.9 x10^3/uL (4.8-10.8)
[2024-06-28 05:31] LABS: CALCIUM 8.8 mg/dL (8.5-10.3); CREATININE 1.1 mg/dL (0.6-1.3); POTASSIUM 3.9 mmol/L (3.5-4.5)
[2024-06-28] MEDS: ATORVASTATIN 40 MG TABLET PO SCH (08:10)
[2024-06-28] MEDS: ACETAMINOPHEN 325 MG TABLET PO PRN (08:10)
[2024-06-28] MEDS: ASPIRIN EC 81 MG TABLET PO SCH (08:10)
[2024-06-28] MEDS: FINASTERIDE 5 MG TABLET PO SCH (08:10)
[2024-06-28] MEDS ORDERED: ENOXAPARIN 40 MG/0.4 ML SYRINGE SUBQ SCH (09:00)
--- NOTE | 2024-06-28 11:38 | PHARMACY PROGRESS NOTE ---
Best Possible Medication History Admit Date and Time: 06/27/24 9567 Processed by: Pharmacy Medications reviewed in ED?: Yes Medication History completed: Yes Patient Interview: Completed Secondary Source(s): Pharmacy records and Insurance records [facility] Statement: As the person ultimately responsible for medication therapy, providers are able to order a medication from an existing home medication list in [facility] via the "Reconcile Routine" prior to Confirmation of that medication by system support specialist. Such practice is discouraged except when the physician, in their clinical judgment, deems that a medical need exists for a medication without regard to previous use.
--- NOTE | 2024-06-28 13:19 | PROVIDER PROGRESS NOTE ---
Subjective Prog Note Date Prog Note Date: 06/28/24 Prog Note Time: 13:12 Subjective Subjective: Patient is an 84-year-old male presenting today in the ER with sudden onset this morning shaking and weakness. Was seen in the ER 10 days ago for a UTI and given 8 to 9 day course of ciprofloxacin. Complaining today of new pain in his neck when he ambulates his neck to the right only as well as pain in his shoulders extending to his buttocks, his left hip and bilaterally in both of his feet as well as both hands. Patient states that the pain in his feet feels different than his neuropathy and the pain in his feet was more like a cramping pain. Describes the pain as severe; it started in bed last night and it "lasted a long time". Denies any chest pain, abdominal pain, shortness of breath, stomach pain, tachycardia or arrhythmias, memory problems, rashes, night sweats, visuala changes, loss of appetite or depression. He has discussed a prostatectomy with his urologist. His urologist wanted to try medication intervention including finasteride before pursuing surgical interventions. States that he began self-catheterization after hospitalization in December at 2 times a day and that he is still retaining between 200 to 500 mL of urine after catheterization. Patient states that he did not take his medications today. He has been taking his medications appropriately otherwise. He endorses 1 extra strength Tylenol pill 2 days ago for pain. He also went to his manager medicare who gave him an unknown herb to promote urination 3 weeks ago. He has been taking 6 pills 3 times a day for about 3 days of this unknown herb. States that he had a PSA of 4 last month and the digital rectal exam was unremarkable. 06/28/2024: Pt is doing well. Denies confusion, is concerned about recurrent UTIs. at bedside. Current Medications Current Medications Current Medications: Current Medications Generic Name Dose Route Start Last Admin Trade Name Freq PRN Reason Stop Dose Admin Acetaminophen 650 mg 06/27/24 18:17 06/28/24 08:10 Acetaminophen 325 Mg Tablet PO 650 mg Q4HR PRN Administration Pain 1 to 4, or Fever Apixaban 5 mg 06/27/24 21:00 06/28/24 08:10 Apixaban 5 Mg Tablet PO 5 mg BID SHREE Administration Aspirin 81 mg 06/28/24 09:00 06/28/24 08:10 Aspirin Ec 81 Mg Tablet PO 81 mg DAILY SHREE Administration Atorvastatin Calcium 40 mg 06/28/24 09:00 06/28/24 08:10 Atorvastatin 40 Mg Tablet PO 40 mg DAILY SHREE Administration Finasteride 5 mg 06/28/24 09:00 06/28/24 08:10 Finasteride 5 Mg Tablet PO 5 mg DAILY SHREE Administration Gabapentin 300 mg 06/27/24 21:00 06/28/24 06:04 Gabapentin 300 Mg Capsule PO 300 mg TID [facility] Administration Guaifenesin 200 mg 06/27/24 21:16 06/27/24 21:56 Guaifenesin 100 Mg/5 Ml Udc PO 200 mg Q6H PRN Administration Cough Levofloxacin 750 mg in 150 mls @ 100 mls/hr 06/27/24 18:17 06/27/24 22:00 Levaquin 750 Mg/150 Ml IV Infused Q24H SHREE Infusion Ondansetron HCl 4 mg 06/27/24 18:17 Ondansetron Odt 4 Mg Tablet TL Q6HR PRN Nausea / Vomiting Ondansetron HCl 4 mg 06/27/24 18:17 Ondansetron 4 Mg/2 Ml Vial IVP Q6HR PRN Nausea / Vomiting Oxycodone HCl 5 mg 06/27/24 18:17 Oxycodone 5 Mg Tablet PO Q4HR PRN Pain 5 to 7 Sodium Chloride 10 ml 06/27/24 18:17 Sodium Chloride Flush 0.9% 10 Ml Syringe IVP PRN PRN NEEDED PER PROVIDER ORDERS Sodium Chloride 10 ml 06/27/24 18:17 06/28/24 08:11 Sodium Chloride Flush 0.9% 10 Ml Syringe IVP Not Given 0100,0900,1700 [facility] Tamsulosin HCl 0.8 mg 06/27/24 21:00 06/27/24 20:50 Tamsulosin 0.4 Mg Capsule PO 0.8 mg [facility] Administration Objective Vital Signs/Intake & Output Vital Signs: Vital Signs x48h Temp Pulse Resp BP Pulse Ox 06/28/24 07:33 36.5 C 73 18 102/56 L 94 06/28/24 06:33 72 107/48 L Intake & Output: Intake & Output 06/26/24 06/27/24 06/28/24 06/29/24 05:59 05:59 05:59 05:59 Intake Total 1390 / 1390 1730 / 1730 Output Total 925 / 925 Balance 465 / 465 1730 / 1730 Weight (kg) 103 kg Objective General Appearance: positive No acute distress and Alert Eyes Bilateral: positive Normal inspection and PERRL ENT: positive ENT inspection nml and Pharynx nml Neck: positive Nml inspection and Trachea midline Respiratory: positive Chest non-tender, No respiratory distress and Breath sounds nml Cardiovascular: positive Other (afb, rate controlled, on eliquis) Abdomen: positive Non-tender and Nml bowel sounds Back: positive Nml inspection Skin: positive Color nml and No rash Extremities: positive Non-tender, Full ROM and Nml appearance Neurologic/Psychiatric: positive Oriented x3 and CN's nml (2-12) Lab Results 06/28/24 05:04 06/28/24 05:04 Other Labs: Lab Results x24hrs 06/28/24 06/27/24 06/27/24 Range/Units 05:04 21:29 18:19 WBC 10.9 H (4.8-10.8) x10^3/uL RBC 3.27 L (4.70-6.10) 10^6/uL Hgb 10.4 L (14.0-18.0) g/dL Hct 32.8 L (42.0-52.0) % MCV 100.3 H (80.0-94.0) fL MCH 31.8 H (27.0-31.0) pg MCHC 31.7 L (32.0-36.0) g/dL RDW 14.5 (12.0-15.0) % Plt Count 166 (130-450) 10^3/uL MPV 9.9 (7.4-11.4) fL Neut # (Auto) 8.8 H (1.5-6.6) 10^3/uL Lymph # (Auto) 0.8 L (1.5-3.5) 10^3/uL [place] # (Auto) 0.8 (0.0-1.0) 10^3/uL Eos # (Auto) 0.4 (0.0-0.7) 10^3/uL Baso # (Auto) 0.0 (0.0-0.1) 10^3/uL Absolute Nucleated RBC 0.00 x10^3/uL Band Neuts % (Manual) Abnorm Lymph % (Manual) Nucleated RBC % 0.0 /100WBC Neutrophils # (Manual) Lymphocytes # (Manual) Monocytes # (Manual) Eosinophils # (Manual) Basophils # (Manual) Differential Comment Manual Slide Review Platelet Estimate (NORMAL) Platelet Morphology (NORMAL) RBC Morph Micro Appear (NORMAL) Sodium 136 (135-145) mmol/L Potassium 3.9 (3.5-4.5) mmol/L Chloride 105 (101-111) mmol/L Carbon Dioxide 27 (21-32) mmol/L Anion Gap 4.0 L (6-13) BUN 30 H (6-20) mg/dL Creatinine 1.1 (0.6-1.3) mg/dL Estimated GFR (MDRD) 64 L (>89) Glucose 112 H (74-104) mg/dL Lactic Acid 1.0 1.6 2.2 (0.5-2.2) mmol/L Calcium 8.8 (8.5-10.3) mg/dL Total Bilirubin (0.2-1.0) mg/dL AST (10-42) IU/L ALT (10-60) IU/L Alkaline Phosphatase (42-121) IU/L Total Protein (6.4-8.9) g/dL Albumin (3.2-5.5) g/dL Globulin (2.1-4.2) g/dL Albumin/Globulin Ratio (1.0-2.2) Urine Color Urine Clarity (CLEAR) Urine pH (5.0-7.5) PH Ur Specific [place] (1.002-1.030) Urine Protein (NEGATIVE) mg/dL Urine Glucose (UA) (NEGATIVE) mg/dL Urine Ketones (NEGATIVE) mg/dL Urine Occult Blood (NEGATIVE) Urine Nitrite (NEGATIVE) Urine Bilirubin (NEGATIVE) Urine Urobilinogen (NORMAL) E.U./dL Ur Leukocyte Esterase (NEGATIVE) Urine RBC (0-5) /HPF Urine WBC (0-3) /HPF Ur Squamous Epith Cells (<= Few) Urine Bacteria (None Seen) /HPF Urine Culture Comments 06/27/24 06/27/24 Range/Units 15:50 15:08 WBC 23.2 H (4.8-10.8) x10^3/uL RBC 3.46 L (4.70-6.10) 10^6/uL Hgb 10.9 L (14.0-18.0) g/dL Hct 34.6 L (42.0-52.0) % MCV 100.0 H (80.0-94.0) fL MCH 31.5 H (27.0-31.0) pg MCHC 31.5 L (32.0-36.0) g/dL RDW 14.4 (12.0-15.0) % Plt Count 199 (130-450) 10^3/uL MPV 9.5 (7.4-11.4) fL Neut # (Auto) 21.1 H (1.5-6.6) 10^3/uL Lymph # (Auto) 0.6 L (1.5-3.5) 10^3/uL [place] # (Auto) 1.2 H (0.0-1.0) 10^3/uL Eos # (Auto) 0.0 (0.0-0.7) 10^3/uL Baso # (Auto) 0.1 (0.0-0.1) 10^3/uL Absolute Nucleated RBC 0.00 x10^3/uL Band Neuts % (Manual) Not Reportable Abnorm Lymph % (Manual) Not Reportable Nucleated RBC % 0.0 /100WBC Neutrophils # (Manual) Not Reportable Lymphocytes # (Manual) Not Reportable Monocytes # (Manual) Not Reportable Eosinophils # (Manual) Not Reportable Basophils # (Manual) Not Reportable Differential Comment MANUAL=AUTO DIFF Manual Slide Review Indicated Platelet Estimate NORMAL (130-450,000) (NORMAL) Platelet Morphology NORMAL APPEARANCE (NORMAL) RBC Morph Micro Appear NORMAL APPEARANCE (NORMAL) Sodium 137 (135-145) mmol/L Potassium 4.0 (3.5-4.5) mmol/L Chloride 103 (101-111) mmol/L Carbon Dioxide 27 (21-32) mmol/L Anion Gap 7.0 (6-13) BUN 35 H (6-20) mg/dL Creatinine 1.3 (0.6-1.3) mg/dL Estimated GFR (MDRD) 52 L (>89) Glucose 138 H (74-104) mg/dL Lactic Acid 2.5 H (0.5-2.2) mmol/L Calcium 9.0 (8.5-10.3) mg/dL Total Bilirubin 1.2 H (0.2-1.0) mg/dL AST 12 (10-42) IU/L ALT 16 (10-60) IU/L Alkaline Phosphatase 44 (42-121) IU/L Total Protein 5.9 L (6.4-8.9) g/dL Albumin 3.3 (3.2-5.5) g/dL Globulin 2.6 (2.1-4.2) g/dL Albumin/Globulin Ratio 1.3 (1.0-2.2) Urine Color YELLOW Urine Clarity SL. CLOUDY (CLEAR) Urine pH 6.0 (5.0-7.5) PH Ur Specific [place] 1.015 (1.002-1.030) Urine Protein TRACE (NEGATIVE) mg/dL Urine Glucose (UA) NEGATIVE (NEGATIVE) mg/dL Urine Ketones NEGATIVE (NEGATIVE) mg/dL Urine Occult Blood NEGATIVE (NEGATIVE) Urine Nitrite NEGATIVE (NEGATIVE) Urine Bilirubin NEGATIVE (NEGATIVE) Urine Urobilinogen 0.2 (NORMAL) (NORMAL) E.U./dL Ur Leukocyte Esterase MODERATE H (NEGATIVE) Urine RBC 0-5 (0-5) /HPF Urine WBC >25 H (0-3) /HPF Ur Squamous Epith Cells FEW Squamous (<= Few) Urine Bacteria Few (None Seen) /HPF Urine Culture Comments INDICATED ABX Reporting Has patient been on IV antibiotics over the past 48 hours?: Yes Sepsis Event Note (H) Evaluation Current Stage of Sepsis: Sepsis (resolved) Possible source of Sepsis: positive Genitourinary Sepsis Criteria Sepsis Criteria: Suspected or Documented, WBC count greater than 12,000 or less than 4000, MAP less than 65 mmHg, SBP less than 90 mmHg and Metabolic: lactate > 2 mmol/L Assessment/Plan Problem List (1) Sepsis secondary to UTI: Impression: resolved Patient now has Pardo catheter. Continue home Flomax and Proscar. Continue IV Levaquin today and changed to p.o. at discharge. (2) Acute hypotension: Impression: Resolved Restart home medication, Lasix, metoprolol, losartan.Monitor for blood pressure control (3) BPH w urinary obs/LUTS: Impression: Patient follows up with YAZ Bush discussed. Patient does not want to go home with a Pardo catheter. Patient is on Flomax, Finasteride. Plan: Before discharge teach patient straight cath. (4) Chronic systolic heart failure: Impression: On exam, no crackles, no JVD. Chronic venous stasis and leg edema noted. Plan: Low salt diet Daily weights Lasix 20 mg IV push QD PRN depending on weight Resume beta carmen metoprolol, entresto, spirinolactone And Lasix. Patient needs to follow-up with cardiology due to multiple antihypertensive medications as well as beta-blockers for BPH. Patient is a high risk for hypotension and hence fall. (5) Chronic a-fib: Impression: well rate controlled continue b-carmen and eliquis (6) Venous stasis dermatitis of both lower extremities: Impression: No evidence of infection, no redness no heat. (7) Pulmonary nodules: Impression: Patient states he had repeat CT with PCP and she wasn't concerned, but she referred to electrolysist for follow up next month.
[2024-06-28] MEDS: FUROSEMIDE 40 MG TABLET PO SCH (21:08)
[2024-06-28] MEDS: VALSARTAN PO SCH (21:09)
[2024-06-28] MEDS: SACUBITRIL PO SCH (21:09)
[2024-06-28] MEDS: METOPROLOL SUCCINATE 50 MG TABLET PO SCH (21:09)
[2024-06-29 05:52] LABS: BASOPHILS % (AUTO) 0.3 %; EOSINOPHILS # (AUTO) 0.5 10^3/uL (0.0-0.7); EOSINOPHILS % (AUTO) 5.8 %; HCT - HEMATOCRIT 33.3 % (42.0-52.0); LYMPHOCYTES % (AUTO) 10.5 %; MEAN CORPUSCULAR HEMOGLOBIN 32.7 pg (27.0-31.0); MEAN CORPUSCULAR VOLUME 99.1 fL (80.0-94.0); MEAN PLATELET VOLUME 9.7 fL (7.4-11.4); MONOCYTES # (AUTO) 0.8 10^3/uL (0.0-1.0); MONOCYTES % (AUTO) 9.1 %; NEUTROPHILS # (AUTO) 6.7 10^3/uL (1.5-6.6); NEUTROPHILS % (AUTO) 73.5 %; PLT - PLATELET COUNT 162 10^3/uL (130-450); RED BLOOD COUNT 3.36 10^6/uL (4.70-6.10); RED CELL DISTRIBUTION WIDTH 14.2 % (12.0-15.0); WHITE BLOOD COUNT 9.1 x10^3/uL (4.8-10.8)
[2024-06-29 06:42] LABS: POTASSIUM 4.1 mmol/L (3.5-4.5)
[2024-06-29 07:40] VITALS: O2SAT 97
--- NOTE | 2024-06-29 11:18 | Discharge Summary ---
Discharge Summary Admit Date: 06/27/24 Discharge Date: 06/29/24 Discharging Provider: brandin DIAGNOSES Admission Diagnoses: sepsis due to UTI acute hypotension Chronic systolic heart failure chronic afib Venous stasis dermatitis Discharge Diagnoses with Status of Each Condition: sepsis due to UTI - resolved acute hypotension - resolved Chronic systolic heart failure - follow up with reservation clerk chronic afib - continue eliquis, beta carmen Venous stasis dermatitis - monitor HPI History of Present Illness: Patient is an 84-year-old male presenting today in the ER with sudden onset this morning shaking and weakness. Was seen in the ER 10 days ago for a UTI and given 8 to 9 day course of ciprofloxacin. Complaining today of new pain in his neck when he ambulates his neck to the right only as well as pain in his shoulders extending to his buttocks, his left hip and bilaterally in both of his feet as well as both hands. Patient states that the pain in his feet feels different than his neuropathy and the pain in his feet was more like a cramping pain. Describes the pain as severe; it started in bed last night and it "lasted a long time". Denies any chest pain, abdominal pain, shortness of breath, stomach pain, tachycardia or arrhythmias, memory problems, rashes, night sweats, visuala changes, loss of appetite or depression. He has discussed a prostatectomy with his urologist. His urologist wanted to try medication intervention including finasteride before pursuing surgical interventions. States that he began self-catheterization after hospitalization in December at 2 times a day and that he is still retaining between 200 to 500 mL of urine after catheterization. Patient states that he did not take his medications today. He has been taking his medications appropriately otherwise. He endorses 1 extra strength Tylenol pill 2 days ago for pain. He also went to his regional economist who gave him an unknown herb to promote urination 3 weeks ago. He has been taking 6 pills 3 times a day for about 3 days of this unknown herb. States that he had a PSA of 4 last month and the digital rectal exam was unremarkable. 06/28/2024: Pt is doing well. Denies confusion, is concerned about recurrent UTIs. at bedside. HOSPITAL COURSE Hospital Course: Patient was started for sepsis due to acute UTI. Patient was started on IV Levaquin which will be continued p.o. at home. Patient has recurrent UTIs most likely secondary to self catheter. He sees a urologist as an outpatient. He will follow-up with urologist. Pardo catheter was placed for severe urinary retention. Before discharge patient was coached and watched for proper self cathing. Hypotension resolved with IV fluid boluses. Patient was started on beta-carmen after hypotension resolved for A-fib rate control and was continued on Eliquis. After hypotension resolved patient was started on his home medication of Lasix, beta-carmen and spironolactone. Patient was discharged on stable condition. Patient will follow-up with urologist and his reservation clerk. ALLERGIES Allergies Allergy/AdvReac Type Severity Reaction Status Date / Time shellfish derived Allergy Anaphylaxis Verified 06/27/24 15:00 shellfish Allergy Anaphylaxis Uncoded 06/27/24 15:00 MEDICATIONS Ambulatory Orders Medication Instructions Recorded Confirmed apixaban 5 mg tablet (Eliquis) 5 mg PO BID 02/26/24 06/27/24 aspirin 81 mg capsule (Vazalore) 81 mg PO DAILY 02/26/24 06/27/24 sacubitril 24 mg-valsartan 26 mg 1 ea PO BID 02/26/24 06/27/24 tablet (Entresto) gabapentin 300 mg capsule 300 mg PO TID 02/27/24 06/27/24 spironolactone 25 mg tablet 12.5 mg PO DAILY 02/27/24 06/27/24 (Aldactone) tamsulosin 0.4 mg capsule 0.8 mg PO HS 02/27/24 06/27/24 acetaminophen 325 mg tablet 650 mg (2 x 325 mg) PO Q4HR PRN 02/28/24 06/27/24 Pain 1 to 4, or Fever atorvastatin 40 mg tablet 40 mg PO QPM 06/27/24 06/28/24 finasteride 5 mg tablet 5 mg PO DAILY 06/27/24 06/27/24 furosemide 80 mg tablet 80 mg PO BID 06/27/24 06/28/24 metoprolol succinate 50 mg 50 mg PO BID 06/27/24 06/28/24 tablet,extended release 24 hr levofloxacin 500 mg tablet 500 mg PO DAILY #5 tabs 06/29/24 PHYSICAL EXAM AT DISCHARGE General Appearance: positive No acute distress and Alert Eyes Bilateral: positive Normal inspection and PERRL ENT: positive ENT inspection nml and No signs of dehydration Neck: positive Nml inspection and Trachea midline Respiratory: positive Chest non-tender and No respiratory distress Cardiovascular: positive No murmur, No gallop and Other (Chronic A-fib, rate controlled) Abdomen: positive Non-tender and No distention Skin: positive Color nml and No rash Extremities: positive Non-tender and Full ROM Neurologic/Psychiatric: positive Oriented x3 and CN's nml (2-12) LABS 06/29/24 05:41 06/29/24 05:41 DIAGNOSTIC IMAGING Diagnostic Imaging Results: Prelim report reviewed and Final report reviewed SEPSIS Current Stage of Sepsis: Sepsis (resolved) Possible source of Sepsis: Genitourinary Sepsis Criteria: Suspected or Documented, WBC count greater than 12,000 or less than 4000, MAP less than 65 mmHg, SBP less than 90 mmHg and Metabolic: lactate > 2 mmol/L QUALITY (Female Hip Fx Only) Was patient sent home on osteoporosis medication?: No FOLLOW UP Follow Up: Patient needs a follow-up with reservation clerk and urologist. TIME SPENT Time Spent in Discharge (Minutes): 35 Discharge Plan Discharge Patient Disposition: 01 Home, Self Care Condition: Serious Medically Cleared Date:: 06/29/24 Prescriptions: New levofloxacin 500 mg tablet 500 mg PO DAILY Qty: 5 0RF Continued Eliquis 5 MG tablet 5 mg PO BID Entresto 1 EACH tablet 1 ea PO BID V[place]alore 81 MG capsule 81 mg PO DAILY spironolactone [Aldactone] 25 MG tablet 12.5 mg PO DAILY Patient Comments: TAKE 1/2 TABLET BY MOUTH DAILY tamsulosin 0.4 MG capsule 0.8 mg PO HS gabapentin 300 MG capsule 300 mg PO TID Patient Comments: take 1 capsule by mouth three times a day acetaminophen 325 MG tablet 650 mg PO Q4HR PRN (Reason: Pain 1 to 4, or Fever) 0RF finasteride 5 mg tablet 5 mg PO DAILY Patient Comments: take 1 tablet by mouth once daily atorvastatin 40 mg tablet 40 mg PO QPM metoprolol succinate 50 mg tablet extended release 24 hr 50 mg PO BID Patient Comments: take 1 tablet by mouth twice a day furosemide 80 mg tablet 80 mg PO BID Patient Comments: take 1 tablet by mouth twice a day (am and 4pm) Activity Restrictions: Activity as Tolerated Diet: Low Sodium Print Language: Palauan Patient Instructions: Sepsis, ED UTI Cystitis Male Stand Alone Forms: PCP List Follow-up Care: RUBIN GREENE MD [Primary Care Provider] -
== END 2024-06-29 12:21 | disposition home or self-care (01) | DRG 872 ==
LOC: ED 14:36 → MS2 16:52
PROVIDERS: ADMIT Specialist; ATTEND Specialist
DX: Z79.82 Long term (current) use of aspirin; I87.2 Venous insufficiency (chronic) (peripheral); I50.22 Chronic systolic (congestive) heart failure; R91.8 Other nonspecific abnormal finding of lung field; I95.9 Hypotension, unspecified; Z79.01 Long term (current) use of anticoagulants; M79.642 Pain in left hand; I48.20 Chronic atrial fibrillation, unspecified; M79.672 Pain in left foot; Z66 Do not resuscitate; A41.9 Sepsis, unspecified organism; M54.2 Cervicalgia; Z79.899 Other long term (current) drug therapy; R33.8 Other retention of urine; M79.641 Pain in right hand; E87.20 Acidosis, unspecified; Z87.891 Personal history of nicotine dependence; N40.1 Benign prostatic hyperplasia with lower urinary tract symptoms; M25.512 Pain in left shoulder; R79.89 Other specified abnormal findings of blood chemistry; N39.0 Urinary tract infection, site not specified; G62.9 Polyneuropathy, unspecified; N13.8 Other obstructive and reflux uropathy; M25.552 Pain in left hip; M25.511 Pain in right shoulder; Z95.0 Presence of cardiac pacemaker; M79.671 Pain in right foot

== ENCOUNTER 2024-07-10 15:30 | Inpatient (IN) ==
[2024-07-10] MEDS: SODIUM CHLORIDE 0.9% 1,000 ML IV STA ×2 (15:37→15:58)
--- NOTE | 2024-07-10 15:59 | ED Physician Documentation ---
History of Present Illness Stated complaint Stated Complaint: Weakness Chief complaint Chief Complaint: Neuro Additonal information Additional information: 84-year-old male with history of chronic UTI, chronic self cath needs, CHF, hemothorax, atrial fibrillation, pacemaker who presents with generalized weakness. Yesterday, after eating [place] food at restaurant, he developed nausea, vomiting, diarrhea, non bloody, with ensuing generalized weakness. Today, while standing, he felt lightheaded, then slumped to the floor without trauma. He denies fevers, chills, cough, shortness of breath, head or neck or chest or back or abdominal or flank pain. He just started Macrobid for his chronic UTIs as well. Family on the way here. He has history of BPH with urinary obstruction, seen via [facility] and [facility] and locally with Dr. Carreon. Per chart view, he was admitted in mid June with sepsis secondary to UTI. Taylor was ordered at that time and he was given Levaquin and ciprofloxacin course. He is on Eliquis for his atrial fibrillation. He is also on Lasix, beta-carmen, spironolactone. Note I requested septic work up/treatment on my assessment immediately after patient arrival. Orders delayed due to patient's chart being put under wrong name. I was requested to cancel all initial orders due to this. Putting orders in as soon as possible. He has received pressured fluids early, and staff aware of plan. Review of Systems ROS Constitutional: no fever, no chills Eyes: no visual disturbance, no discharge Ears, Nose, Mouth, Throat: no rhinorrhea, no sore throat Cardiovascular: no chest pain, no palpitations Respiratory: no cough, no shortness of breath Gastrointestinal: no abdominal pain, + vomiting, + diarrhea Genitourinary: no dysuria, no hematuria, +frequent self cath Musculoskeletal: no back pain, no neck stiffness Skin: no rash, no wound Neurological: no focal weakness, no focal numbness Meds/Allgy Home Medications Ambulatory Orders Medication Instructions Recorded Confirmed apixaban 5 mg tablet (Eliquis) 5 mg PO BID 02/26/24 07/10/24 aspirin 81 mg capsule (Vazalore) 81 mg PO DAILY 02/26/24 07/10/24 sacubitril 24 mg-valsartan 26 mg 1 ea PO BID 02/26/24 07/10/24 tablet (Entresto) gabapentin 300 mg capsule 300 mg PO TID 02/27/24 07/10/24 spironolactone 25 mg tablet 12.5 mg PO DAILY 02/27/24 07/10/24 (Aldactone) tamsulosin 0.4 mg capsule 0.8 mg PO HS 02/27/24 07/10/24 acetaminophen 325 mg tablet 650 mg (2 x 325 mg) PO Q4HR PRN 02/28/24 07/10/24 Pain 1 to 4, or Fever atorvastatin 40 mg tablet 40 mg PO QPM 06/27/24 07/10/24 finasteride 5 mg tablet 5 mg PO DAILY 06/27/24 07/10/24 furosemide 80 mg tablet 80 mg PO BID 06/27/24 07/10/24 metoprolol succinate 50 mg 50 mg PO BID 06/27/24 07/10/24 tablet,extended release 24 hr nitrofurantoin 100 mg PO BID 07/10/24 07/10/24 monohydrate/macrocrystals 100 mg capsule Allergies Allergies Allergy/AdvReac Type Severity Reaction Status Date / Time shellfish derived Allergy Anaphylaxis Verified 07/10/24 15:49 shellfish Allergy Anaphylaxis Uncoded 07/10/24 15:49 [facility] Medical History Medical History Sepsis secondary to UTI Sepsis Acute UTI Acute hypotension Pacemaker Pulmonary nodules seen on CT incidental. BPH w urinary obs/LUTS straight cath>>taylor twice at [facility] 12/2023. Seen by Urology at [facility], and here with Dr. Carreon Hemothorax with fall 12/2023 Ribs, multiple fractures Atrial fibrillation 01/04/24 with transfer to [facility] Family History Family History Mother Senescence Father COPD (chronic obstructive pulmonary disease) Brother CAD (coronary artery disease) Sister Narcolepsy cataplexy syndrome Daughter Well adult exam Social History Social History Smoking Status: Former smoker Do you dip or chew tobacco?: No Patient requests smoking cessation consult: No Initiate information on smoking cessation: No Living arrangement: At home Living Condition: With spouse/s.o. Relationship: Level: Independent Home Mobility Equipment: Cane Do you feel safe in your home environment?: Yes Suffered physical, verbal, emotional, or financial abuse?: No History of Abuse: No ETOH Use: None Substance Use: denies use POLST Patient has POLST: No POLST Status: DNR Exam Exam Const: no acute distress, non toxic appearing; calm, conversant, pleasant Eyes: PERRLA, EOMI ENT: mucous membranes moist Neck: supple, non-tender Resp: no respiratory distress, clear to auscultation bilaterally Card: regular rate and rhythm, no murmurs; pacemaker upper chest non tender Abd: non tender diffusely, no rigidity or rebound or guarding Back: no T or L spine tenderness, no CVA tenderness bilaterally Extrem: no deformities, no swelling bilateral lower extremities, 2+ distal pulses all extremities Neuro: ANOx4, telephone ad taker grossly intact, grossly intact sensation and strength all extremities Skin: no rash, warm and dry Results Vitals Vitals: Vital Signs - 24 hr 07/10/24 15:37 07/10/24 17:42 07/10/24 17:51 Temperature 36.1 C L Temperature Source Temporal Artery Scan Pulse Rate 72 70 70 Respiratory Rate 17 15 21 Blood Pressure 87/45 L 88/50 L 120/67 O2 Saturation 96 94 97 O2 Source Room air Room air Room air Pain Intensity 0 0 0 07/10/24 17:54 07/10/24 18:04 07/10/24 18:12 Temperature Temperature Source Pulse Rate 71 70 70 Respiratory Rate 19 96 H 21 Blood Pressure 121/64 115/68 123/70 O2 Saturation 95 21 L 94 O2 Source Room air Room air Room air Pain Intensity 0 0 0 07/10/24 18:40 07/10/24 18:56 Temperature 36.4 C L Temperature Source Temporal Artery Scan Pulse Rate 70 72 Respiratory Rate 94 H 20 Blood Pressure 123/53 L 121/64 O2 Saturation 21 L O2 Source Room air Room air Pain Intensity 0 0 Oxygen O2 Source Room air Labs Labs: Laboratory Tests 07/10/24 07/10/24 07/10/24 15:51 16:08 16:45 WBC 16.2 H RBC 3.50 L Hgb 11.1 L Hct 35.2 L MCV 100.6 H MCH 31.7 H MCHC 31.5 L RDW 14.3 Plt Count 171 MPV 10.5 Neut # (Auto) 14.2 H Lymph # (Auto) 0.5 L [place] # (Auto) 1.3 H Eos # (Auto) 0.0 Baso # (Auto) 0.0 Absolute Nucleated RBC 0.00 Nucleated RBC % 0.0 Sodium 138 Potassium 4.0 Chloride 101 Carbon Dioxide 28 Anion Gap 9.0 BUN 42 H Creatinine 2.1 H Estimated GFR (MDRD) 30 L Glucose 117 H Lactic Acid 3.2 H* Calcium 8.6 Iron 24 L TIBC 239 L % Saturation 10 L Transferrin 171 L Total Bilirubin 1.3 H AST 12 ALT 12 Alkaline Phosphatase 42 Troponin I High Sens 23.2 H* Total Protein 5.8 L Albumin 3.2 Globulin 2.6 Albumin/Globulin Ratio 1.2 Urine Color YELLOW Urine Clarity CLEAR Urine pH 6.0 Ur Specific [place] 1.020 Urine Protein 30 H Urine Glucose (UA) NEGATIVE Urine Ketones NEGATIVE Urine Occult Blood NEGATIVE Urine Nitrite NEGATIVE Urine Bilirubin NEGATIVE Urine Urobilinogen 0.2 (NORMAL) Ur Leukocyte Esterase MODERATE H Urine RBC 0-5 Urine WBC >25 H Urine WBC Clumps PRESENT Ur Squamous Epith Cells NONE SEEN Urine Bacteria Rare Urine Culture Comments INDICATED Nasal Influenza B PCR NOT DETECTED Nasal Influenza A PCR NOT DETECTED Nasal RSV (PCR) NOT DETECTED Nasal SARS-CoV-2 (PCR) NOT DETECTED 07/10/24 18:22 WBC RBC Hgb Hct MCV MCH MCHC RDW Plt Count MPV Neut # (Auto) Lymph # (Auto) [place] # (Auto) Eos # (Auto) Baso # (Auto) Absolute Nucleated RBC Nucleated RBC % Sodium Potassium Chloride Carbon Dioxide Anion Gap BUN Creatinine Estimated GFR (MDRD) Glucose Lactic Acid 1.4 Calcium Iron TIBC % Saturation Transferrin Total Bilirubin AST ALT Alkaline Phosphatase Troponin I High Sens Total Protein Albumin Globulin Albumin/Globulin Ratio Urine Color Urine Clarity Urine pH Ur Specific [place] Urine Protein Urine Glucose (UA) Urine Ketones Urine Occult Blood Urine Nitrite Urine Bilirubin Urine Urobilinogen Ur Leukocyte Esterase Urine RBC Urine WBC Urine WBC Clumps Ur Squamous Epith Cells Urine Bacteria Urine Culture Comments Nasal Influenza B PCR Nasal Influenza A PCR Nasal RSV (PCR) Nasal SARS-CoV-2 (PCR) PD Medical Decision Making ED course ED course: This patients presentation is most concerning for sepsis with hypotension on arrival despite fluids with EMS, versus intravascular volume depletion secondary to volume loss with vomiting overnight. As per my discussion above, I am immediately initiating broad and aggressive septic workup and treatment. I am initiating vancomycin and Zosyn with pressure bag fluids, while obtaining CBC, CMP, lactate, blood cultures, viral swab, chest x-ray, cath urine, EKG, troponin and closely reassessing. Syncopal episode appears highly likely secondary to orthostatic hypotension in context. Family reportedly en route. Family arrived and corroborated available history. EKG: Paced rhythm without acute ischemia or immediately concerning for prolongation in the setting of paced rhythm. Labs: CBC returned with neutrophilic leukocytosis, anemia similar to prior, no thrombocytopenia. Chemistry with probable prerenal VIOLETA, elevated lactate concerning for underlying sepsis as discussed. Mild bilirubin elevation. Troponin is elevated however in the setting of preceding hypotension without chest pain; we will trend this. No AST or ALT or alk phos elevation. I agree with radiology reads of imaging on my independent review of CXR: "FINDINGS: Surgical changes and devices: A pacer device can be seen. Lungs and pleura: There is stable blunting of the left costophrenic angle. Mild generalized interstitial prominence can be seen. No pneumothorax is seen. No focal consolidative infiltrate can be seen. Mediastinum: Mediastinal contours appear normal. Heart size is mildly to moderately enlarged. Calcification is seen of the aortic arch. Bones and chest wall: No suspicious bony lesions. Age-appropriate degenerative changes are seen. Overlying soft tissues appear unremarkable. IMPRESSION: Mild to moderate cardiomegaly, with associated generalized pulmonary interstitial prominence. Please consider CHF. Blunting of the left costophrenic angle is seen. Correlation is made with prior imaging, this is likely related to a prominent pericardial fat pad and atelectasis. Differential diagnosis includes a small pleural effusion, atelectasis and less likely. Reviewed by: Juancho Verma MD on 07/10/2024 3:32 PM AK[facility]" Due to lack of rapid resolution of BP with fluids, I am starting NE gtt. Additional fluids ordered; note between our fluids and EMS, patient should receive roughly 30cc/kg. I am watching for signs of worsening pulmonary edema, but none yet. Viral swab negative. UA with some evidence of infection but not clearly infected; however, this is in the setting of outpatient PO antibiotics. I spoke with Dr. Mcgrath at 1738. She kindly will see patient and anticipates acceptance, though ICU beds limited. Patient on NE gtt; I will place central line. I have consented patient and spouse. - PROCEDURE: central line placement with continuous US guidance Patient consented for procedure via PARQ. Timeout performed. Ultrasound used to identify appropriate site. Area prepped with chlorhexidine and draped. Using full sterile conditions, continuous US guidance, and Seldinger technique, line placed on first attempt. 4mL of 1% lidocaine without epinephrine used for local anesthesia prior to procedure. 4mL blood loss. Bio patch placed and line secured. Patient tolerated procedure well. Post placement radiograph confirmed adequate placement. - Patient being admitted in improving condition, on NE gtt, broad spectrum antibiotics. No chest pain, with presentation not consistent with ACS. Repeat troponin and lactate pending. Repeat EKG remains with paced rhythm, no acute ischemia or immediately concerning interval prolongation in the setting of paced rhythm. Repeat XR rads read, which I agree with on my review: "FINDINGS: Surgical changes and devices: A right-sided central line is seen, the tip overlying the superior to mid aspect superior vena cava, 5 and 6 cm above the cavoatrial junction. A pacer device can be seen. Lungs and pleura: There is blunting of the left costophrenic angle. No pneumothorax is seen.. Mild generalized interstitial prominence can be seen. Mediastinum: Mediastinal contours appear normal. Heart size is mildly enlarged. Calcification is seen of the aortic arch. Bones and chest wall: No suspicious bony lesions. Overlying soft tissues appear unremarkable. IMPRESSION: The tip of the newly placed right-sided central line can be seen overlying the superior to mid superior vena cava. Reviewed by: Juancho Verma MD on 07/10/2024 5:48 PM AKDT" Repeat lactate normalized Repeat troponin with mild increase but in clinical context this is overall reassuring, as NSTEMI II secondary to hypotension is highly likely, with no chest pain and course as above. Patient admitted, boarding in ER pending ICU beds. CRITICAL CARE TIME: outside of procedures, I spent 70 minutes assessing, reassessing, resuscitating this patient, speaking with family and consultants, and interpreting studies and documentation, in the setting of concern for septic shock requiring vasopressors as above. Discharge Plan Discharge Patient Disposition: 66 [facility] DC/Xfer Condition: Stable Clinical Impression: Septic shock Prescriptions: No Action Eliquis 5 MG tablet 5 mg PO BID Entresto 1 EACH tablet 1 ea PO BID Vazalore 81 MG capsule 81 mg PO DAILY spironolactone [Aldactone] 25 MG tablet 12.5 mg PO DAILY Patient Comments: TAKE 1/2 TABLET BY MOUTH DAILY tamsulosin 0.4 MG capsule 0.8 mg PO HS gabapentin 300 MG capsule 300 mg PO TID Patient Comments: take 1 capsule by mouth three times a day acetaminophen 325 MG tablet 650 mg PO Q4HR PRN (Reason: Pain 1 to 4, or Fever) 0RF finasteride 5 mg tablet 5 mg PO DAILY Patient Comments: take 1 tablet by mouth once daily atorvastatin 40 mg tablet 40 mg PO QPM metoprolol succinate 50 mg tablet extended release 24 hr 50 mg PO BID Patient Comments: take 1 tablet by mouth twice a day furosemide 80 mg tablet 80 mg PO BID Patient Comments: take 1 tablet by mouth twice a day (am and 4pm) nitrofurantoin monohyd/m-cryst 100 mg capsule 100 mg PO BID Patient Comments: take 1 capsule by mouth twice a day for 7 days then take 1 tablet... (REFER TO PRESCRIPTION NOTES). Print Language: Rwandan
[2024-07-10 16:06] LABS: BASOPHILS % (AUTO) 0.2 %; EOSINOPHILS % (AUTO) 0.2 %; HCT - HEMATOCRIT 35.2 % (42.0-52.0); HGB - HEMOGLOBIN 11.1 g/dL (14.0-18.0); LYMPHOCYTES # (AUTO) 0.5 10^3/uL (1.5-3.5); LYMPHOCYTES % (AUTO) 3.1 %; MEAN CORPUSCULAR HEMOGLOBIN 31.7 pg (27.0-31.0); MEAN CORPUSCULAR HGB CONC 31.5 g/dL (32.0-36.0); MEAN CORPUSCULAR VOLUME 100.6 fL (80.0-94.0); MEAN PLATELET VOLUME 10.5 fL (7.4-11.4); MONOCYTES # (AUTO) 1.3 10^3/uL (0.0-1.0); MONOCYTES % (AUTO) 7.9 %; NEUTROPHILS # (AUTO) 14.2 10^3/uL (1.5-6.6); NEUTROPHILS % (AUTO) 87.9 %; PLT - PLATELET COUNT 171 10^3/uL (130-450); RED CELL DISTRIBUTION WIDTH 14.3 % (12.0-15.0); WHITE BLOOD COUNT 16.2 x10^3/uL (4.8-10.8)
[2024-07-10 16:17] LABS: ALBUMIN 3.2 g/dL (3.2-5.5); ALBUMIN/GLOBULIN RATIO 1.2 (1.0-2.2); BILIRUBIN,TOTAL 1.3 mg/dL (0.2-1.0); CALCIUM 8.6 mg/dL (8.5-10.3); CREATININE 2.1 mg/dL (0.6-1.3); TOTAL PROTEIN 5.8 g/dL (6.4-8.9)
--- NOTE | 2024-07-10 16:33 | XRAY Report ---
PROCEDURE: XR Chest 1V INDICATIONS: septic work up TECHNIQUE: One view of the chest was acquired. COMPARISON: 06/27/2024, chest x-ray and CT FINDINGS: Surgical changes and devices: A pacer device can be seen. Lungs and pleura: There is stable blunting of the left costophrenic angle. Mild generalized intersti tial prominence can be seen. No pneumothorax is seen. No focal consolidative infiltrate can be seen. Mediastinum: Mediastinal contours appear normal. Heart size is mildly to moderately enlarged. Calc ification is seen of the aortic arch. Bones and chest wall: No suspicious bony lesions. Age-appropriate degenerative changes are seen. Overlying soft tissues appear unremarkable. IMPRESSION: Mild to moderate cardiomegaly, with associated generalized pulmonary interstitial prominence. Please consider CHF. Blunting of the left costophrenic angle is seen. Correlation is made with prior imaging, this is like ly related to a prominent pericardial fat pad and atelectasis. Differential diagnosis includes a smal l pleural effusion, atelectasis and less likely. Reviewed by: Juancho Verma MD on 07/10/2024 3:32 PM [facility] Approved by: Juancho Verma MD on 07/10/2024 3:32 PM SAE Station ID: [id number]
[2024-07-10] MEDS: PIPERACILLIN/TAZOBACTAM 4.5 GM in SODIUM CHLORIDE 0.9% MINIBAG 100 ML IV STA (16:49)
[2024-07-10 16:55] LABS: BILIRUBIN,URINE NEGATIVE (NEGATIVE); GLUCOSE, URINE (UA) NEGATIVE (NEGATIVE); KETONES,URINE (UA) NEGATIVE (NEGATIVE); LEUKOCYTE ESTERASE, URINE MODERATE (NEGATIVE); NITRITE,URINE NEGATIVE (NEGATIVE); OCCULT BLOOD,URINE NEGATIVE (NEGATIVE); PROTEIN,URINE 30 mg/dL (NEGATIVE); UROBILINOGEN,URINE 0.2 (NORMAL) E.U./dL (NORMAL)
[2024-07-10 17:05] LABS: INFLUENZA A- RESP PCR PANEL NOT DETECTED; INFLUENZA B - RESP PCR PANEL NOT DETECTED; RSV- RESP PCR PANEL NOT DETECTED; SARS-CoV-2 -RESP PCR PANEL NOT DETECTED
[2024-07-10 17:13] LABS: BACTERIA,URINE Rare /HPF (None Seen); CLARITY,URINE CLEAR (CLEAR); RBC,URINE 0-5 /HPF (0-5); SQUAMOUS EPITHELIAL CELL,UR NONE SEEN (<= Few); WBC CLUMPS,URINE PRESENT; WBC,URINE >25 /HPF (0-3)
[2024-07-10] MEDS: VANCOMYCIN INJ 1.5 GM in SODIUM CHLORIDE 0.9% 500 ML IV STA (17:33)
[2024-07-10] MEDS: NOREPINEPHRINE/0.9 % NS 8 MG/250 ML BAG IV SCH (17:33)
--- NOTE | 2024-07-10 18:20 | HISTORY & PHYSICAL EXAMINATION ---
Chief Complaint Chief Complaint Chief Complaint: Weakness, hypotension at home History of Present Illness Admitted From Admitted From:: Home History Obtained From History obtained from: Patient and History of Present Illness HPI Comment/Other: Patient is an 84-year-old male with a history of BPH s/p LUTS, atrial fibrillation on metoprolol and Eliquis, who presents due to weakness. Of note, he was recently here, and admitted from 06/27 to 06/29. At that time, he presented with sepsis, acute hypotension, due to presumed UTI. He was discharged with a course of ciprofloxacin. He then went to [facility] on 07/09 per him and his . Here, they did a urinalysis. At that time, he was prescribed Macrobid and told to stop his ciprofloxacin. He does see urologist outpatient as well. Over the last 4 days, him and his have been eating out a lot. Yesterday evening, he had an episode of nausea, as well as nonbloody, nonbilious emesis. His did not have any similar GI symptoms. He then went to sleep. He woke this morning feeling very weak. He checked his blood pressure a few times, and was concerned when it was 80s over 40s. As such, they decided to come in. Of note, he did not take any of his home medications including his metoprolol, Entresto, spironolactone, Lasix. He denies any fevers, chills. He denies any chest pain or shortness of breath. He has no new rashes. He does have some dysuria, he states, but not worse than "his usual". He denies incontinence at this time. Meds/Allgy Home Medications Ambulatory Orders Medication Instructions Recorded Confirmed apixaban 5 mg tablet (Eliquis) 5 mg PO BID 02/26/24 07/10/24 aspirin 81 mg capsule ([place]) 81 mg PO DAILY 02/26/24 07/10/24 sacubitril 24 mg-valsartan 26 mg 1 ea PO BID 02/26/24 07/10/24 tablet (Entresto) gabapentin 300 mg capsule 300 mg PO TID 02/27/24 07/10/24 spironolactone 25 mg tablet 12.5 mg PO DAILY 02/27/24 07/10/24 (Aldactone) tamsulosin 0.4 mg capsule 0.8 mg PO HS 02/27/24 07/10/24 acetaminophen 325 mg tablet 650 mg (2 x 325 mg) PO Q4HR PRN 02/28/24 07/10/24 Pain 1 to 4, or Fever atorvastatin 40 mg tablet 40 mg PO QPM 06/27/24 07/10/24 finasteride 5 mg tablet 5 mg PO DAILY 06/27/24 07/10/24 furosemide 80 mg tablet 80 mg PO BID 06/27/24 07/10/24 metoprolol succinate 50 mg 50 mg PO BID 06/27/24 07/10/24 tablet,extended release 24 hr nitrofurantoin 100 mg PO BID 07/10/24 07/10/24 monohydrate/macrocrystals 100 mg capsule Allergies Allergies Allergy/AdvReac Type Severity Reaction Status Date / Time shellfish derived Allergy Anaphylaxis Verified 07/10/24 15:49 shellfish Allergy Anaphylaxis Uncoded 07/10/24 15:49 FOR[facility]LY [facility] Medical History Medical History Sepsis secondary to UTI Sepsis Acute UTI Acute hypotension Pacemaker Pulmonary nodules seen on CT incidental. BPH w urinary obs/LUTS straight cath>>taylor twice at [facility] 12/2023. Seen by Urology at [facility], and here with Dr. Carreon Hemothorax with fall 12/2023 Ribs, multiple fractures Atrial fibrillation 01/04/24 with transfer to [facility] Family History Family History Mother Senescence Father COPD (chronic obstructive pulmonary disease) Brother CAD (coronary artery disease) Sister Narcolepsy cataplexy syndrome Daughter Well adult exam Social History Social History Smoking Status: Former smoker Do you dip or chew tobacco?: No Patient requests smoking cessation consult: No Initiate information on smoking cessation: No Living arrangement: At home Living Condition: With spouse/s.o. Relationship: Level: Independent Home Mobility Equipment: Cane Do you feel safe in your home environment?: Yes Suffered physical, verbal, emotional, or financial abuse?: No History of Abuse: No ETOH Use: None Substance Use: denies use POLST Patient has POLST: No POLST Status: DNR Review of Systems Constitutional Reports: Fatigue, Malaise, Weakness, Changes in appetite or eating habits and Poor appetite; Denies: Fever, Chills or Diaphoresis Eyes Denies: Pain, Irritation, Vision loss or Change in vision Ears, nose, mouth, and throat Denies: Ear pain, Ear discharge, Change in hearing, Nasal congestion, Post nasal drip, Throat pain, Neck pain or Throat swelling Cardiovascular Reports: Irregular heart rate; Denies: chest pain, palpitations, edema, swelling of feet/ankles, Syncope or shortness of breath with exertion Respiratory Denies: Shortness of breath, Cough, Sputum production, Wheezing, Pleuritic pain, SOB at rest or SOB with exertion Gastrointestinal Reports: Nausea, Vomiting and Poor appetite; Denies: Abdominal pain or Abdominal distention Genitourinary Reports: Incontinence, Urinary frequency and Urinary urgency; Denies: Painful urination or Blood in urine Musculoskeletal Denies: Back pain, Neck pain, Extremity pain or Extremity swelling Integumentary/Breast Denies: Rash, Itching, Dryness or Redness Neurological Reports: General weakness; Denies: Headache, Focal weakness, Weakness in extremities or Numbness in extremities Psychiatric Denies: Depression, Anxiety, Mood swings, Panic attacks, Change in sleep pattern or Hopelessness Endocrine Reports: Excessive urination and Fatigue Allergic/Immunologic Denies: Throat swelling or Wheezing Prior Level of Functionality: Fully functional at baseline. Uses a cane occasionally. Lives at home with his . Exam Constitutional normal general appearance, no apparent distress, average body habitus and alert HENMT normocephalic, head/scalp atraumatic and hearing grossly normal bilaterally Eyes PERRL and EOMs intact bilaterally Neck/C-Spine trachea midline Lymph no lymphadenopathy noted Chest inspection of chest normal Respiratory breath sounds equal bilaterally, normal respiratory effort, clear to auscultation bilaterally, wheezing noted and rales noted Cardiovascular normal heart rate noted, rhythm abnormal (irregular), JVD noted and edema noted (mild non-pitting edema) Gastrointestinal abdomen normal to inspection, abdomen soft to palpation, nontender to palpation, normoactive bowel sounds and no hepatosplenomegaly Genitourinary no CVA tenderness and bladder normal to palpation Extremities normal to inspection, normal to palpation, no tenderness and full ROM Neurology no movement abnormality noted, no focal motor deficit noted, no sensory deficits noted, gait normal and speech normal Psychiatry mental status grossly normal, oriented x3, thought process normal, cooperative and affect normal Skin skin color normal and rash noted (stasis changes, hyperpigmentation noted in bilateral lower extremities ) Sepsis Event Note (H) Evaluation Current Stage of Sepsis: Septic shock Possible source of Sepsis: positive Genitourinary Sepsis Criteria Sepsis Criteria: WBC count greater than 12,000 or less than 4000, SBP drop more than 40mHg and MAP less than 65 mmHg Conclusion/Plan Problem List (1) Septic shock: Plan: Patient presented with hypotension, leukocytosis. Source is likely genitourinary, as patient has history of recurrent UTIs. Patient is currently on Macrobid so UA is not grossly positive. Does show some rare bacteria. Did not respond to 30 cc/kg of fluid. Currently requiring Levophed and central line placement. Continue vancomycin, cefepime. Blood cultures, urine cultures ordered, pending. Continue to trend lactic acid. (2) UTI (urinary tract infection): Plan: Continue broad-spectrum antibiotic coverage with vancomycin and cefepime due to multiple antibiotics being used in the last few months, and possible resistance. Urine culture, blood cultures ordered, pending. Qualifiers: Hematuria presence: without hematuria Urinary tract infection type: a cute cystitis Qualified Code(s): N30.00 - Acute cystitis without hematuria (3) Leukocytosis: Plan: Likely due to infectious process above, continue to monitor and trend. Qualifiers: Leukocytosis type: unspecified Qualified Code(s): D72.829 - Elevated white blood cell count, unspecified (4) Macrocytic anemia: Plan: TIBC, ferritin, iron saturation, iron levels ordered, pending. If low, will hold off on IV iron supplementation in setting of active infection. (5) Acute kidney injury: Plan: Likely prerenal due to volume depletion as evidenced by GI losses, as well as hypotension. Continue to trend creatinine. Hold Lasix, spironolactone. Continue gentle IV fluid rehydration. Monitor respiratory status as patient with history of systolic heart failure. (6) Lactic acidosis: Plan: Due to hypotension, poor perfusion as evidenced by above. Continue gentle IV fluid rehydration, continue to trend. (7) Elevated troponin: Plan: Patient with no active chest pain, no EKG changes noted to suggest ischemia. Likely due to demand ischemia in setting of hypotension. Continue to trend. (8) Pacemaker: Plan: Continue to follow-up with cardiology outpatient. 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 Holding metoprolol at this time due to hypotension. Continue to monitor. (9) BPH w urinary obs/LUTS: Plan: Patient with another urinary tract infection. Follow-up with urology outpatient for possible chronic antibiotic therapy for suppression of this. (10) Atrial fibrillation: Plan: Patient with a long history of atrial fibrillation, on Eliquis as well as metoprolol. Metoprolol currently held due to hypotension and use of Levophed. Will resume metoprolol when able. Continue Eliquis at this time. Qualifiers: Atrial fibrillation type: unspecified chronic Qualified Code(s): I48.20 - Chronic atrial fibrillation, unspecified (11) Chronic systolic heart failure: Plan: Patient with systolic heart failure. No echo in system however, patient does have reduced ejection fraction and follows closely with cardiology outpatient. Will currently hold Lasix, spironolactone, metoprolol at this time due to patient's hypotension. Will proceed with caution with use of IV fluids in setting of heart failure. Lab Results Lab results reviewed: Yes 07/10/24 15:51 07/10/24 15:51 Diagnostic Imaging Results Diagnostic Imaging Results: positive Final report reviewed EKG Results EKG Interpreted Independently: Yes Core Measures Anticipated LOS I expect patient to be DC'd or transferred within 96 hours.: No DVT/VTE - Prophylaxis VTE/DVT Device ordered at admit?: Yes VTE/DVT Prophylaxis med ordered at admit?: Yes Stroke - Rehab Assessment Rehab services assessment to be ordered?: No Not Ordered - Medical Reason: Not indicated AMI - Statin at Admit Aspirin Prescribed on Admit: No Not Ordered - Medical Reason: Not indicated
[2024-07-10 18:29] LABS: % IRON SATURATION 10 % (20-50); IRON 24 ug/dL (50-212); TOTAL IRON BINDING CAPACITY 239 ug/dL (250-450); TRANSFERRIN 171 mg/dL (203-362)
[2024-07-10] MEDS: SODIUM CHLORIDE 0.9% 500 ML IV STA (18:33)
--- NOTE | 2024-07-10 18:50 | XRAY Report ---
PROCEDURE: XR Chest 1V INDICATIONS: post central line TECHNIQUE: One view of the chest was acquired. COMPARISON: 07/10/2024, earlier in the day FINDINGS: Surgical changes and devices: A right-sided central line is seen, the tip overlying the superior to mid aspect superior vena cava, 5 and 6 cm above the cavoatrial junction. A pacer device can be seen. Lungs and pleura: There is blunting of the left costophrenic angle. No pneumothorax is seen.. Mild g eneralized interstitial prominence can be seen. Mediastinum: Mediastinal contours appear normal. Heart size is mildly enlarged. Calcification is se en of the aortic arch. Bones and chest wall: No suspicious bony lesions. Overlying soft tissues appear unremarkable. IMPRESSION: The tip of the newly placed right-sided central line can be seen overlying the superior to mid superi or vena cava. Reviewed by: Juancho Verma MD on 07/10/2024 5:48 PM [facility] Approved by: Juancho Verma MD on 07/10/2024 5:48 PM AKDT Station ID: [id number]
[2024-07-10] MEDS: APIXABAN 5 MG TABLET PO SCH (21:32)
[2024-07-10] MEDS: ATORVASTATIN 40 MG TABLET PO SCH (21:33)
[2024-07-10] MEDS: GABAPENTIN 300 MG CAPSULE PO SCH (21:33)
[2024-07-10] MEDS: CEFEPIME 2 GM in SODIUM CHLORIDE 0.9% MINIBAG 100 ML IV SCH (21:33)
[2024-07-10] MEDS: TAMSULOSIN 0.4 MG CAPSULE PO SCH (21:33)
[2024-07-11] MEDS ORDERED: ACETAMINOPHEN 325 MG TABLET PO ONE (00:47)
[2024-07-11] MEDS: ACETAMINOPHEN 325 MG TABLET PO PRN (00:48)
[2024-07-11 05:02] LABS: HCT - HEMATOCRIT 33.7 % (42.0-52.0); HGB - HEMOGLOBIN 10.9 g/dL (14.0-18.0); MEAN CORPUSCULAR HEMOGLOBIN 32.2 pg (27.0-31.0); MEAN CORPUSCULAR HGB CONC 32.3 g/dL (32.0-36.0); MEAN CORPUSCULAR VOLUME 99.4 fL (80.0-94.0); MEAN PLATELET VOLUME 10.4 fL (7.4-11.4); RED BLOOD COUNT 3.39 10^6/uL (4.70-6.10); RED CELL DISTRIBUTION WIDTH 14.4 % (12.0-15.0); WHITE BLOOD COUNT 13.4 x10^3/uL (4.8-10.8)
[2024-07-11 05:19] LABS: CALCIUM 8.4 mg/dL (8.5-10.3); CREATININE 1.6 mg/dL (0.6-1.3); POTASSIUM 3.6 mmol/L (3.5-4.5)
[2024-07-11] MEDS ORDERED: GABAPENTIN 300 MG CAPSULE ONE (06:34)
[2024-07-11] MEDS ORDERED: ACETAMINOPHEN 325 MG TABLET PO PRN (08:18)
--- NOTE | 2024-07-11 08:44 | PROVIDER PROGRESS NOTE ---
Subjective Subjective Subjective: Patient states that he feels much better than yesterday. He says his weakness is completely gone. He has had no fevers and chills. He is eager to eat. Of note, patient has chronic urinary retention, and self catheterizes a few times a day. He also states that his blood pressure usually runs on the lower side, 100/60s. 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 Plan is to wean him off Levophed, de-escalate his antibiotics, and transfer him out of the ICU. Current Medications Current Medications Current Medications: Current Medications Generic Name Dose Route Start Last Admin Trade Name Freq PRN Reason Stop Dose Admin Acetaminophen 650 mg 07/10/24 19:58 07/11/24 00:48 Acetaminophen 325 Mg Tablet PO 650 mg Q4HR PRN Administration Pain 1 to 4, or Fever Acetaminophen 650 mg 07/11/24 08:18 Acetaminophen 325 Mg Tablet PO Q4HR PRN Pain 1 to 4, or Fever Apixaban 5 mg 07/10/24 21:00 07/10/24 21:32 Apixaban 5 Mg Tablet PO 5 mg BID SHREE Administration Aspirin 81 mg 07/11/24 09:00 Aspirin Chew 81 Mg Tablet PO DAILY SHREE Atorvastatin Calcium 40 mg 07/10/24 21:00 07/10/24 21:33 Atorvastatin 40 Mg Tablet PO 40 mg QPM SHREE Administration Famotidine 20 mg 07/11/24 09:00 Famotidine 20 Mg Tablet PO BID SHREE Finasteride 5 mg 07/11/24 09:00 Finasteride 5 Mg Tablet PO DAILY SHREE Gabapentin 300 mg 07/10/24 22:00 07/11/24 06:55 Gabapentin 300 Mg Capsule PO 300 mg TID SHREE Administration Norepinephrine/Sodium Chloride 8 mg in 250 mls @ 15 mls/hr 07/10/24 17:00 07/11/24 05:47 Levophed 8 Mg/250-0.9% Nacl IV 8 mcg/min .[id number] SHREE 15 mls/hr Titration Protocol 8 MCG/MIN Cefepime HCl 2 gm/ Sodium 100 mls @ 200 mls/hr 07/10/24 22:00 07/10/24 22:36 Chloride IV Infused Q12H SHREE Infusion Vancomycin HCl 1.5 gm/ Sodium 500 mls @ 250 mls/hr 07/11/24 17:00 Chloride IV Q24H SHREE Melatonin 3 mg 07/11/24 00:59 Melatonin 3 Mg Tablet PO QPM PRN Insomnia Sodium Chloride 10 ml 07/11/24 09:00 Sodium Chloride Flush 0.9% 10 Ml Syringe IVP 0100,0900,1700 SHREE Sodium Chloride 10 ml 07/11/24 08:18 Sodium Chloride Flush 0.9% 10 Ml Syringe IVP PRN PRN NEEDED PER PROVIDER ORDERS Tamsulosin HCl 0.8 mg 07/10/24 21:00 07/10/24 21:33 Tamsulosin 0.4 Mg Capsule PO 0.8 mg HS SHREE Administration Vancomycin HCl 1 each 07/10/24 19:58 Vancomycin: Pharmacy To Dose MC ONCE PRN PER PHARMACY Objective Vital Signs/Intake & Output Reviewed Vital Signs: Yes Vital Signs: Vital Signs x48h Temp Pulse Resp BP Pulse Ox 07/11/24 08:00 71 16 117/56 L 95 07/11/24 07:00 97.9 F 76 15 112/66 94 07/11/24 06:10 70 110/49 L 07/11/24 06:05 74 111/52 L 07/11/24 06:00 75 16 113/57 L 96 07/11/24 05:50 105/49 L 07/11/24 05:45 96/44 L 07/11/24 05:00 87 18 96/52 L 95 07/11/24 04:00 70 17 99/48 L 96 07/11/24 03:00 76 19 113/61 91 L 07/11/24 02:00 70 17 120/59 L 90 L 07/11/24 01:00 70 20 111/61 93 Intake & Output: Intake & Output 07/09/24 07/10/24 07/11/24 07/12/24 05:59 05:59 05:59 05:59 Intake Total 3337 / 3337 Output Total 1080 / 1080 230 / 230 Balance 2257 / 2257 -230 / -230 Weight (kg) 100 kg Objective General Appearance: positive No acute distress and Alert; negative Anxious Eyes Bilateral: positive Normal inspection, PERRL and EOMI ENT: positive ENT inspection nml, Pharynx nml and No signs of dehydration Neck: positive Nml inspection, Thyroid nml and Trachea midline; negative No JVD Respiratory: positive Chest non-tender, No respiratory distress and Breath sounds nml; negative Wheezes, Rales or Rhonchi Cardiovascular: positive No murmur, No gallop and Irregularly irregular (biventricular paced rhythm ) Abdomen: positive Non-tender and Nml bowel sounds; negative Tenderness, Guarding, Rebound, Hepatomegaly, Splenomegaly or Mass Back: positive Nml inspection; negative CVA tenderness (R) or CVA tenderness (L) Skin: positive Color nml, Warm and Dry; negative No rash (hyperpigmentation/stasis changes in bilateral lower extremities) Extremities: positive Non-tender, Full ROM, Nml appearance and No pedal edema Neurologic/Psychiatric: positive Oriented x3 and Mood/affect nml; negative Facial droop Lab Results 07/11/24 04:45 07/11/24 04:45 Other Labs: Lab Results x24hrs 07/11/24 07/10/24 07/10/24 Range/Units 04:45 21:30 18:22 WBC 13.4 H (4.8-10.8) x10^3/uL RBC 3.39 L (4.70-6.10) 10^6/uL Hgb 10.9 L (14.0-18.0) g/dL Hct 33.7 L (42.0-52.0) % MCV 99.4 H (80.0-94.0) fL MCH 32.2 H (27.0-31.0) pg MCHC 32.3 (32.0-36.0) g/dL RDW 14.4 (12.0-15.0) % Plt Count 159 (130-450) 10^3/uL MPV 10.4 (7.4-11.4) fL Neut # (Auto) (1.5-6.6) 10^3/uL Lymph # (Auto) (1.5-3.5) 10^3/uL [place] # (Auto) (0.0-1.0) 10^3/uL Eos # (Auto) (0.0-0.7) 10^3/uL Baso # (Auto) (0.0-0.1) 10^3/uL Absolute Nucleated RBC x10^3/uL Nucleated RBC % /100WBC Sodium 139 (135-145) mmol/L Potassium 3.6 (3.5-4.5) mmol/L Chloride 105 (101-111) mmol/L Carbon Dioxide 28 (21-32) mmol/L Anion Gap 6.0 (6-13) BUN 39 H (6-20) mg/dL Creatinine 1.6 H (0.6-1.3) mg/dL Estimated GFR (MDRD) 41 L (>89) Glucose 116 H (74-104) mg/dL Lactic Acid 1.1 1.4 (0.5-2.2) mmol/L Calcium 8.4 L (8.5-10.3) mg/dL Iron (50-212) ug/dL TIBC (250-450) ug/dL % Saturation (20-50) % Transferrin (203-362) mg/dL Total Bilirubin (0.2-1.0) mg/dL AST (10-42) IU/L ALT (10-60) IU/L Alkaline Phosphatase (42-121) IU/L Troponin I High Sens 27.6 H* (2.3-19.7) ng/L Total Protein (6.4-8.9) g/dL Albumin (3.2-5.5) g/dL Globulin (2.1-4.2) g/dL Albumin/Globulin Ratio (1.0-2.2) Urine Color Urine Clarity (CLEAR) Urine pH (5.0-7.5) PH Ur Specific [place] (1.002-1.030) Urine Protein (NEGATIVE) mg/dL Urine Glucose (UA) (NEGATIVE) mg/dL Urine Ketones (NEGATIVE) mg/dL Urine Occult Blood (NEGATIVE) Urine Nitrite (NEGATIVE) Urine Bilirubin (NEGATIVE) Urine Urobilinogen (NORMAL) E.U./dL Ur Leukocyte Esterase (NEGATIVE) Urine RBC (0-5) /HPF Urine WBC (0-3) /HPF Urine WBC Clumps Ur Squamous Epith Cells (<= Few) Urine Bacteria (None Seen) /HPF Urine Culture Comments Nasal Influenza B PCR Nasal Influenza A PCR Nasal RSV (PCR) Nasal Screen MRSA (PCR) NEGATIVE (NEGATIVE) Nasal SARS-CoV-2 (PCR) 07/10/24 07/10/24 07/10/24 Range/Units 16:45 16:08 15:51 WBC 16.2 H (4.8-10.8) x10^3/uL RBC 3.50 L (4.70-6.10) 10^6/uL Hgb 11.1 L (14.0-18.0) g/dL Hct 35.2 L (42.0-52.0) % MCV 100.6 H (80.0-94.0) fL MCH 31.7 H (27.0-31.0) pg MCHC 31.5 L (32.0-36.0) g/dL RDW 14.3 (12.0-15.0) % Plt Count 171 (130-450) 10^3/uL MPV 10.5 (7.4-11.4) fL Neut # (Auto) 14.2 H (1.5-6.6) 10^3/uL Lymph # (Auto) 0.5 L (1.5-3.5) 10^3/uL [place] # (Auto) 1.3 H (0.0-1.0) 10^3/uL Eos # (Auto) 0.0 (0.0-0.7) 10^3/uL Baso # (Auto) 0.0 (0.0-0.1) 10^3/uL Absolute Nucleated RBC 0.00 x10^3/uL Nucleated RBC % 0.0 /100WBC Sodium 138 (135-145) mmol/L Potassium 4.0 (3.5-4.5) mmol/L Chloride 101 (101-111) mmol/L Carbon Dioxide 28 (21-32) mmol/L Anion Gap 9.0 (6-13) BUN 42 H (6-20) mg/dL Creatinine 2.1 H (0.6-1.3) mg/dL Estimated GFR (MDRD) 30 L (>89) Glucose 117 H (74-104) mg/dL Lactic Acid 3.2 H* (0.5-2.2) mmol/L Calcium 8.6 (8.5-10.3) mg/dL Iron 24 L (50-212) ug/dL TIBC 239 L (250-450) ug/dL % Saturation 10 L (20-50) % Transferrin 171 L (203-362) mg/dL Total Bilirubin 1.3 H (0.2-1.0) mg/dL AST 12 (10-42) IU/L ALT 12 (10-60) IU/L Alkaline Phosphatase 42 (42-121) IU/L Troponin I High Sens 23.2 H* (2.3-19.7) ng/L Total Protein 5.8 L (6.4-8.9) g/dL Albumin 3.2 (3.2-5.5) g/dL Globulin 2.6 (2.1-4.2) g/dL Albumin/Globulin Ratio 1.2 (1.0-2.2) Urine Color YELLOW Urine Clarity CLEAR (CLEAR) Urine pH 6.0 (5.0-7.5) PH Ur Specific [place] 1.020 (1.002-1.030) Urine Protein 30 H (NEGATIVE) mg/dL Urine Glucose (UA) NEGATIVE (NEGATIVE) mg/dL Urine Ketones NEGATIVE (NEGATIVE) mg/dL Urine Occult Blood NEGATIVE (NEGATIVE) Urine Nitrite NEGATIVE (NEGATIVE) Urine Bilirubin NEGATIVE (NEGATIVE) Urine Urobilinogen 0.2 (NORMAL) (NORMAL) E.U./dL Ur Leukocyte Esterase MODERATE H (NEGATIVE) Urine RBC 0-5 (0-5) /HPF Urine WBC >25 H (0-3) /HPF Urine WBC Clumps PRESENT Ur Squamous Epith Cells NONE SEEN (<= Few) Urine Bacteria Rare (None Seen) /HPF Urine Culture Comments INDICATED Nasal Influenza B PCR NOT DETECTED Nasal Influenza A PCR NOT DETECTED Nasal RSV (PCR) NOT DETECTED Nasal Screen MRSA (PCR) (NEGATIVE) Nasal SARS-CoV-2 (PCR) NOT DETECTED Diagnostic Imaging Diagnostic Imaging Results: positive Final report reviewed Diagnostic Imaging Comments: Chest x-ray done 07/10 showed blunting of left costophrenic angle, no pneumothorax, mild generalized interstitial prominence. Sepsis Event Note (H) Evaluation Current Stage of Sepsis: Septic shock Possible source of Sepsis: positive Genitourinary Sepsis Criteria Sepsis Criteria: WBC count greater than 12,000 or less than 4000, SBP drop more than 40mHg and MAP less than 65 mmHg Assessment/Plan Problem List (1) Septic shock: Impression: Patient presented with hypotension, leukocytosis. Source is likely genitourinary, as patient has history of recurrent UTIs and history of intermittent self catheterization. Patient is currently on Macrobid so UA is not grossly positive. Does show some rare bacteria. Did not respond to 30 cc/kg of fluid. Currently requiring Levophed and central line placement. Continue vancomycin, cefepime. MRSA swab ordered, pending. Blood cultures, urine cultures ordered, pending. (2) UTI (urinary tract infection): Impression: Continue broad-spectrum antibiotic coverage with vancomycin and cefepime due to multiple antibiotics being used in the last few months, and possible resistance. Urine culture, blood cultures ordered, pending. Qualifiers: Hematuria presence: without hematuria Urinary tract infection type: a cute cystitis Qualified Code(s): N30.00 - Acute cystitis without hematuria (3) Leukocytosis: Impression: Likely due to infectious process above, downtrending, continue to monitor. Laboratory Tests 07/10/24 07/11/24 15:51 04:45 WBC 16.2 H 13.4 H Qualifiers: Leukocytosis type: unspecified Qualified Code(s): D72.829 - Elevated white blood cell count, unspecified (4) Macrocytic anemia: Impression: TIBC, ferritin, iron saturation, iron levels indicate iron deficiency. Will hold off on iron supplementation in setting of active infection, and possible siderophilic nature of bacteria, and replace when more clinically stable. (5) Acute kidney injury: Impression: Improving. Likely prerenal due to volume depletion as evidenced by GI losses, as well as hypotension. Continue to trend creatinine. Hold Lasix, spironolactone. Continue gentle IV fluid rehydration. Monitor respiratory status as patient with history of systolic heart failure. Laboratory Test 07/10/24 07/11/24 15:51 04:45 Creatinine 2.1 H 1.6 H (6) Lactic acidosis: Impression: Resolved. Due to hypotension, poor perfusion as evidenced by above. Continue gentle IV fluid rehydration, continue to trend. Laboratory Tests 07/10/24 07/10/24 07/11/24 15:51 18:22 04:45 Lactic Acid 3.2 H* 1.4 1.1 (7) Elevated troponin: Impression: Patient with no active chest pain, no EKG changes noted to suggest ischemia. Likely due to demand ischemia in setting of hypotension. Continue to trend. (8) Pacemaker: Impression: Continue to follow-up with cardiology outpatient. 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 Holding metoprolol at this time due to hypotension. Continue to monitor. (9) BPH w urinary obs/LUTS: Impression: Continue to follow-up with cardiology outpatient. 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 Holding metoprolol at this time due to hypotension. Continue to monitor. (10) Atrial fibrillation: Impression: Patient with a long history of atrial fibrillation, on Eliquis as well as metoprolol. Metoprolol currently held due to hypotension and use of Levophed. Rate controlled. Will resume metoprolol when able. Continue Eliquis at this time. Qualifiers: Atrial fibrillation type: unspecified chronic Qualified Code(s): I48.20 - Chronic atrial fibrillation, unspecified (11) Chronic systolic heart failure: Impression: Patient with systolic heart failure. No echo in system however, patient does have reduced ejection fraction and follows closely with cardiology outpatient. Will currently hold Lasix, spironolactone, metoprolol at this time due to patient's hypotension. Will proceed with caution with use of IV fluids in setting of heart failure.
[2024-07-11] MEDS: ASPIRIN CHEW 81 MG TABLET PO SCH (09:02)
[2024-07-11] MEDS: FINASTERIDE 5 MG TABLET PO SCH (09:02)
[2024-07-11] MEDS: FAMOTIDINE 20 MG TABLET PO SCH (09:03)
[2024-07-11] MEDS: SODIUM CHLORIDE FLUSH 0.9% 10 ML SYRINGE IVP SCH (09:03)
--- NOTE | 2024-07-11 10:25 | PHARMACY PROGRESS NOTE ---
Vancomycin Therapy Monitoring Vancomycin Therapy Goals Treatment Indication: SEPSIS Vancomycin Target Range: Vancomycin AUC Target Range 400-600 mcg*h/ml Plan: Vancomycin Loading Dose (GM, if applicable): 1500MG 07/10 @ 1733 New Regimen (Enter new dose and interval): 1250MG Q24H STARTING 07/11 @ 1700. ANTICIPATED AUC OF 508 Vancomycin Level Recommendation: Level not necessary at this time
--- NOTE | 2024-07-11 12:53 | PHARMACY PROGRESS NOTE ---
Best Possible Medication History Admit Date and Time: 07/10/24 [id number] Processed by: Pharmacy Medications reviewed in ED?: No Medication History completed: Yes Patient Interview: Completed Secondary Source(s): Spouse/Significant other and Insurance records [facility] Statement: As the person ultimately responsible for medication therapy, providers are able to order a medication from an existing home medication list in [facility] via the "Reconcile Routine" prior to Confirmation of that medication by network support manager. Such practice is discouraged except when the physician, in their clinical judgment, deems that a medical need exists for a medication without regard to previous use.
[2024-07-11] MEDS ORDERED: VANCOMYCIN INJ 1.5 GM in SODIUM CHLORIDE 0.9% 500 ML IV SCH (17:00)
[2024-07-11] MEDS: VANCOMYCIN INJ 1 GM, VANCOMYCIN INJ 250 MG in SODIUM CHLORIDE 0.9% 250 ML IV SCH (17:06)
[2024-07-11] MEDS: MELATONIN 3 MG TABLET PO PRN (21:32)
[2024-07-12] MEDS: SODIUM CHLORIDE FLUSH 0.9% 10 ML SYRINGE IVP PRN (04:38)
[2024-07-12 04:47] LABS: HCT - HEMATOCRIT 32.2 % (42.0-52.0); HGB - HEMOGLOBIN 10.2 g/dL (14.0-18.0); MEAN CORPUSCULAR HEMOGLOBIN 31.6 pg (27.0-31.0); MEAN CORPUSCULAR HGB CONC 31.7 g/dL (32.0-36.0); MEAN CORPUSCULAR VOLUME 99.7 fL (80.0-94.0); MEAN PLATELET VOLUME 10.5 fL (7.4-11.4); RED BLOOD COUNT 3.23 10^6/uL (4.70-6.10); RED CELL DISTRIBUTION WIDTH 14.2 % (12.0-15.0); WHITE BLOOD COUNT 7.8 x10^3/uL (4.8-10.8)
[2024-07-12 04:48] LABS: VBG PH 7.404 (7.31-7.41)
[2024-07-12 04:49] LABS: CALCIUM, IONIZED 1.15 mmol/L (1.15-1.33)
[2024-07-12 05:04] LABS: CALCIUM 8.8 mg/dL (8.5-10.3); CREATININE 1.1 mg/dL (0.6-1.3); MAGNESIUM 1.7 mg/dL (1.7-2.3); PHOSPHORUS 2.6 mg/dL (2.5-5.0)
[2024-07-12] MEDS: MAGNESIUM OXIDE 400 MG TABLET PO ONE (05:48)
--- NOTE | 2024-07-12 15:38 | PROVIDER PROGRESS NOTE ---
Subjective Prog Note Date Prog Note Date: 07/12/24 Prog Note Time: 15:34 Subjective Subjective: Pt feels much better today. Sitting in chair. No CP or SOB. Walked some and reports generally weak. Tolerating po intake. Current Medications Current Medications Current Medications: Current Medications Generic Name Dose Route Start Last Admin Trade Name Freq PRN Reason Stop Dose Admin Acetaminophen 650 mg 07/10/24 19:58 07/11/24 00:48 Acetaminophen 325 Mg Tablet PO 650 mg Q4HR PRN Administration Pain 1 to 4, or Fever Apixaban 5 mg 07/10/24 21:00 07/12/24 08:35 Apixaban 5 Mg Tablet PO 5 mg BID SHREE Administration Aspirin 81 mg 07/11/24 09:00 07/12/24 08:35 Aspirin Chew 81 Mg Tablet PO 81 mg DAILY SHREE Administration Atorvastatin Calcium 40 mg 07/10/24 21:00 07/11/24 21:32 Atorvastatin 40 Mg Tablet PO 40 mg QPM SHREE Administration Famotidine 20 mg 07/11/24 09:00 07/12/24 08:36 Famotidine 20 Mg Tablet PO 20 mg BID SHREE Administration Finasteride 5 mg 07/11/24 09:00 07/12/24 08:35 Finasteride 5 Mg Tablet PO 5 mg DAILY SHREE Administration Gabapentin 300 mg 07/10/24 22:00 07/12/24 14:40 Gabapentin 300 Mg Capsule PO 300 mg TID SHREE Administration Norepinephrine/Sodium Chloride 8 mg in 250 mls @ 15 mls/hr 07/10/24 17:00 07/12/24 12:44 Levophed 8 Mg/250-0.9% Nacl IV Not Given .[id number] SHREE Protocol 8 MCG/MIN Cefepime HCl 2 gm/ Sodium 100 mls @ 200 mls/hr 07/10/24 22:00 07/12/24 10:45 Chloride IV Infused Q12H SHREE Infusion Vancomycin HCl 1 gm/ 250 mls @ 167 mls/hr 07/11/24 17:00 07/11/24 19:59 Vancomycin HCl 250 mg/ Sodium IV Infused Chloride Q24H SHREE Infusion Melatonin 3 mg 07/11/24 00:59 07/11/24 21:32 Melatonin 3 Mg Tablet PO 3 mg QPM PRN Administration Insomnia Sacubitril 24 Mg- 1 each 07/12/24 21:00 Valsartan 26 Mg PO Tablet (Entresto) BID SHREE Sodium Chloride 10 ml 07/11/24 09:00 07/12/24 08:36 Sodium Chloride Flush 0.9% 10 Ml Syringe IVP 10 ml 0100,0900,1700 SHREE Administration Sodium Chloride 10 ml 07/11/24 08:18 07/12/24 04:38 Sodium Chloride Flush 0.9% 10 Ml Syringe IVP 10 ml PRN PRN Administration NEEDED PER PROVIDER ORDERS Tamsulosin HCl 0.8 mg 07/10/24 21:00 07/11/24 21:32 Tamsulosin 0.4 Mg Capsule PO 0.8 mg HS SHREE Administration Objective Vital Signs/Intake & Output Vital Signs: Vital Signs Pulse Resp BP Pulse Ox 07/12/24 15:00 70 14 120/62 96 07/12/24 14:00 74 23 117/65 98 07/12/24 13:00 70 18 132/64 H 97 Intake & Output: Intake & Output 07/10/24 07/11/24 07/12/24 07/13/24 05:59 05:59 05:59 05:59 Intake Total 3337 / 3337 2343 / 2343 580 / 580 Output Total 1080 / 1080 2415 / 2415 810 / 810 Balance 2257 / 2257 -72 / -72 -230 / -230 Weight (kg) 100 kg 99.5 kg Objective Comments/Other: elderly man sitting in chair, NAD, Sclera anicteric, MMM, lungs: few bibasilar crackles, wheezes at bases, nonlabored irreg irreg, S1S2, no edema abd soft, NT, Nd, BS+ alert, normal tone, no tremor taylor draining clear yellow urine CVL in neck c/d/i Lab Results 07/12/24 04:36 07/12/24 04:36 Other Labs: Lab Results x24hrs 07/12/24 Range/Units 04:36 WBC 7.8 (4.8-10.8) x10^3/uL RBC 3.23 L (4.70-6.10) 10^6/uL Hgb 10.2 L (14.0-18.0) g/dL Hct 32.2 L (42.0-52.0) % MCV 99.7 H (80.0-94.0) fL MCH 31.6 H (27.0-31.0) pg MCHC 31.7 L (32.0-36.0) g/dL RDW 14.2 (12.0-15.0) % Plt Count 137 (130-450) 10^3/uL MPV 10.5 (7.4-11.4) fL VBG pH 7.404 (7.31-7.41) Ionized Calcium 1.15 (1.15-1.33) mmol/L Sodium 139 (135-145) mmol/L Potassium 4.0 (3.5-4.5) mmol/L Chloride 108 (101-111) mmol/L Carbon Dioxide 28 (21-32) mmol/L Anion Gap 3.0 L (6-13) BUN 27 H (6-20) mg/dL Creatinine 1.1 (0.6-1.3) mg/dL Estimated GFR (MDRD) 64 L (>89) Glucose 132 H (74-104) mg/dL Calcium 8.8 (8.5-10.3) mg/dL Phosphorus 2.6 (2.5-5.0) mg/dL Magnesium 1.7 (1.7-2.3) mg/dL Sepsis Event Note (H) Evaluation Current Stage of Sepsis: Septic shock Possible source of Sepsis: positive Genitourinary Sepsis Criteria Sepsis Criteria: WBC count greater than 12,000 or less than 4000, SBP drop more than 40mHg and MAP less than 65 mmHg Assessment/Plan Problem List (1) Septic shock: (2) UTI (urinary tract infection): Qualifiers: Hematuria presence: without hematuria Urinary tract infection type: a cute cystitis Qualified Code(s): N30.00 - Acute cystitis without hematuria (3) Macrocytic anemia: (4) Acute kidney injury: (5) BPH w urinary obs/LUTS: (6) Atrial fibrillation: Qualifiers: Atrial fibrillation type: unspecified chronic Qualified Code(s): I48.20 - Chronic atrial fibrillation, unspecified (7) Chronic systolic heart failure: (8) Urinary retention due to benign prostatic hyperplasia: (9) Tachy-khadra syndrome: Impression: 84 yo M with pmhx of afib on DOAC, tachy-khadra syndrome s/p PPM, HFrEF, BPH, chronic urinary retention requiring self-cathing BID presenting wtih septic shock. Admitted to ICU on pressor. 1. complicated UTI, septic shock resolved: off norepinephrine since yesterday afternoon, afebrile, wbc trending down. Low count of E. coli in Ucx, blood cx NGTD. - switch to bactrim to complete total 7 day course - d/c CVL 2. BPH, chronic urinary retention, self cath at home: - d/c taylor - self cath BID and prn - cont finasteride and tamsulosin 3. Afib, tachy-khadra, PPM: - cont home DOAC - resume metoprolol soon 4. Chronic HFrEF: unknown EF. Euvolemic on exam. - resume entresto, gradually reintroduce GDMT 5. VIOLETA: likely ATN in setting of sepsis. Resolved. - d/c ivf, trend BMP, avoid nephrotoxins - hold spironolactone and lasix for now 6. macrocytic anemia: Fe sat 10% indicating some degree of Fe def. - start po Fe supp on discharge - f/u B12 level Dispo and GOC: Came from home with . Walks with cane. Plan d/c tomorrow if he continues to do well. Follow up with PMD.
[2024-07-12] MEDS: SULFAMETH/TRIMETH DS 800/160 MG TABLET PO SCH (20:12)
[2024-07-12] MEDS: SACUBITRIL PO SCH (20:14)
[2024-07-12] MEDS: VALSARTAN PO SCH (20:14)
[2024-07-13 04:50] LABS: CREATININE 0.9 mg/dL (0.6-1.3); POTASSIUM 4.1 mmol/L (3.5-4.5)
[2024-07-13 13:04] VITALS: O2SAT 98
--- NOTE | 2024-07-13 19:18 | Discharge Summary ---
"Discharge Summary Admit Date: 07/10/24 Discharge Date: 07/13/24 Discharging Provider: Philip Bui Primary Care Provider: Rubin Greene Code Status: Attempt Resuscitation DIAGNOSES Admission Diagnoses: septick shock secondary to UTI macrocytic anemia VIOLETA lactic acidosis elevated troponin Pacemaker BPH with urinary obs/LUTS atrial fibrillation chronic HFrEF Discharge Diagnoses with Status of Each Condition: septick shock secondary to complicated UTI BPH with urinary obs/LUTS atrial fibrillation Pacemaker chronic HFrEF VIOLETA, resolved macrocytic anemia lactic acidosis, resolved elevated troponin, resolved HPI History of Present Illness: 84 yo M with pmhx of afib on DOAC, tachy-khadra syndrome s/p PPM, HFrEF, BPH, chronic urinary retention requiring self-cathing BID presenting with weakness. Of note, he was recently here, and admitted from 06/27 to 06/29. At that time, he presented with sepsis, acute hypotension, due to presumed UTI. He was discharged with a course of ciprofloxacin. Pt self caths at home 2-3x per day. He has had recurrent UTIs this year. Follows with urology and is discussing TURP. CONSULTS | PROCEDURES Procedures: Central venous line HOSPITAL COURSE Hospital Course: 1. complicated UTI, septic shock resolved: the pt was initially in septic shock and admitted to the ICU on pressors. He was weaned off norepinephrine by hospital day 2 and wbc trended down. Low count (<10,000) of E. coli grew in Ucx. Blood cx remained negative. Suspect sef cathing led to recurrent UTIs he has had in recent months. I discussed the case with his PMD, Dr Greene, on day of discharge. Pt had outpt Ucx obtained in clinic on 07/07/24 which grew > 100,000 ESBL E. coli. At that time the pt was prescribed nitrofurantoin with plan for group home suppressive abx treatment with this medication. Given his rapid clinical response during current admission with cefepime, I suspect his current infection was caused by a susceptible organism. No susceptibilities are available for current E. coli given low count. He was switched to bactrim to complete a 7 day course. He may return to his PMD's plan for ongoing suppressive therapy with nitrofurantoin when he finishes course of bactrim. 2. BPH, chronic urinary retention, self cath at home: The pt had a taylor catheter placed on admission in setting of critical illness. Cather was removed and pt resume self-cathing prior to discharge. He received teaching from RN on self-cathing technique. He was continued on finasteride and tamsulosin. He was instructed to follow up with his urologists as scheduled. 3. Afib, tachy-khadra, PPM: Metoprolol was initially held in setting of septic shock and then resumed on discharge. DOAC was continued. 4. Chronic HFrEF: unknown EF. Some CHF meds were held initially and then gradually reintroduced. Pt was euvolemic on exam on day of discharge. 5. VIOLETA: likely ATN in setting of sepsis and prerenal from GI loss. VIOLETA resolved. 6. macrocytic anemia: Fe sat 10% indicating some degree of Fe def. The pt was started on po Fe supplements MWF on discharge. 7. Elevated troponin: no signs of ACS- no ischemic changes on EKG, no chest pain. Trop elevation consistent with myocardial injury due to sepsis, hypotension in setting of HFrEF. Resolved. l ALLERGIES Allergies Allergy/AdvReac Type Severity Reaction Status Date / Time iodine Allergy Unknown unknown Verified 07/13/24 12:17 shellfish derived Allergy Anaphylaxis Verified 07/10/24 15:49 amoxicillin (From Augmentin) AdvReac Intermediate vomiting Verified 07/13/24 12:17 clavulanic acid (From AdvReac Intermediate vomiting Verified 07/13/24 12:17 Augmentin) shellfish Allergy Anaphylaxis Uncoded 07/10/24 15:49 MEDICATIONS Ambulatory Orders Medication Instructions Recorded Confirmed apixaban 5 mg tablet (Eliquis) 5 mg PO BID 02/26/24 07/10/24 aspirin 81 mg capsule (Vazalore) 81 mg PO DAILY 02/26/24 07/10/24 sacubitril 24 mg-valsartan 26 mg 1 ea PO BID 02/26/24 07/11/24 tablet (Entresto) gabapentin 300 mg capsule 300 mg PO BID 02/27/24 07/11/24 spironolactone 25 mg tablet 12.5 mg PO DAILY 02/27/24 07/10/24 (Aldactone) tamsulosin 0.4 mg capsule 0.8 mg PO HS 02/27/24 07/10/24 acetaminophen 325 mg tablet 650 mg (2 x 325 mg) PO Q4HR PRN 02/28/24 07/10/24 Pain 1 to 4, or Fever atorvastatin 40 mg tablet 40 mg PO QPM 06/27/24 07/10/24 finasteride 5 mg tablet 5 mg PO DAILY 06/27/24 07/10/24 furosemide 80 mg tablet 80 mg PO BID 06/27/24 07/10/24 metoprolol succinate 50 mg 50 mg PO BID 06/27/24 07/10/24 tablet,extended release 24 hr nitrofurantoin 100 mg PO BID 07/10/24 07/11/24 monohydrate/macrocrystals 100 mg capsule ferrous sulfate 325 mg (65 mg 325 mg PO .mwf #24 tabs 07/13/24 iron) tablet sennosides 8.6 mg capsule (senna) 8.6 mg PO .mwf #24 caps 07/13/24 sulfamethoxazole 800 1 tab PO BID #8 tabs 07/13/24 mg-trimethoprim 160 mg tablet PHYSICAL EXAM AT DISCHARGE Physical Exam Other/Comments: elderly man sitting in chair, NAD, Sclera anicteric, MMM, lungs: few bibasilar crackles, wheezes at bases, nonlabored irreg irreg, S1S2, no edema abd soft, NT, Nd, BS+ alert, normal tone, no tremor LABS 07/12/24 04:36 07/13/24 04:29 SEPSIS Current Stage of Sepsis: Septic shock Possible source of Sepsis: Genitourinary Sepsis Criteria: WBC count greater than 12,000 or less than 4000, SBP drop more than 40mHg and MAP less than 65 mmHg FOLLOW UP Follow Up: With PMD as scheduled in 1-2 wks TIME SPENT Time Spent in Discharge (Minutes): 35 Discharge Plan Discharge Patient Disposition: Home, Self Care Condition: Stable Medically Cleared Date:: 07/13/24 Prescriptions: New sulfamethoxazole-trimethoprim 800-160 mg Tablet 1 tab PO BID Qty: 8 0RF ferrous sulfate 325 mg (65 mg iron) tablet 325 mg PO .mwf Qty: 24 0RF Rx Instructions: take thursday, thu, thu senna 8.6 mg capsule 8.6 mg PO .mwf Qty: 24 1RF Rx Instructions: Take with iron supplement to prevent constipation. Continued Eliquis 5 MG tablet 5 mg PO BID Entresto 1 EACH tablet 1 ea PO BID Rx Instructions: TAKES HALF A PILL IF BP<95/50 OR HOLDS DOSE [place]alore 81 MG capsule 81 mg PO DAILY spironolactone [Aldactone] 25 MG tablet 12.5 mg PO DAILY Patient Comments: TAKE 1/2 TABLET BY MOUTH DAILY tamsulosin 0.4 MG capsule 0.8 mg PO HS gabapentin 300 MG capsule 300 mg PO BID acetaminophen 325 MG tablet 650 mg PO Q4HR PRN (Reason: Pain 1 to 4, or Fever) 0RF finasteride 5 mg tablet 5 mg PO DAILY Patient Comments: take 1 tablet by mouth once daily atorvastatin 40 mg tablet 40 mg PO QPM metoprolol succinate 50 mg tablet extended release 24 hr 50 mg PO BID Patient Comments: TAKES HALF A PILL IF BP<95/50 furosemide 80 mg tablet 80 mg PO BID Patient Comments: take 1 tablet by mouth twice a day (am and 4pm) nitrofurantoin monohyd/m-cryst 100 mg capsule 100 mg PO BID Patient Comments: ... (REFER TO PRESCRIPTION NOTES). Rx Instructions: take 1 capsule by mouth twice a day for 7 days (07/09-07/16) then take 1 tablet DAILY Activity Restrictions: Activity as Tolerated Diet: Low Sodium Plan of Treatment: Continue the entire course of antibiotics as prescribed. After you finish the course of bactrim (sulfamethoxazole-trimethoprim), resume the antibiotic prescribed by your primary care provider to prevent urinary tract infections (nitrofurantoin). Contact your primary care provider or return to the hospital if you have difficulty with self-catheterization, lower abdominal pain, burning or pain with urination, fever, chest pain, shortness of breath, or for any other concerns. You have also been prescribed an iron supplement due to anemia with low iron level on labs drawn in the hospital. Take the stool softener prescribed to avoid constipation with this medication. Your primary care provider can follow-up your anemia with repeat lab testing in a few months. Print Language: Bengali Patient Instructions: Self Catheterization Men, Anemia Iron Deficiency Ch Stand Alone Forms: PCP List Follow-up Care: RUBIN GREENE MD [Primary Care Provider] - 2 Weeks (Call to make an appointment for within 1-2 weeks for hospital follow-up. )"
== END 2024-07-13 13:38 | disposition home or self-care (01) | DRG 871 ==
LOC: ED 15:30 → ICU 19:16
PROVIDERS: ADMIT Internal Medicine; ATTEND Internal Medicine
DX: E87.20 Acidosis, unspecified; I50.22 Chronic systolic (congestive) heart failure; D53.9 Nutritional anemia, unspecified; Z95.0 Presence of cardiac pacemaker; Z79.01 Long term (current) use of anticoagulants; I48.91 Unspecified atrial fibrillation; D64.9 Anemia, unspecified; R65.21 Severe sepsis with septic shock; I49.5 Sick sinus syndrome; B96.20 Unspecified Escherichia coli [E. coli] as the cause of diseases classified elsewhere; A41.9 Sepsis, unspecified organism; Z87.891 Personal history of nicotine dependence; R55 Syncope and collapse; Z66 Do not resuscitate; I95.1 Orthostatic hypotension; I48.20 Chronic atrial fibrillation, unspecified; Z87.440 Personal history of urinary (tract) infections; N30.00 Acute cystitis without hematuria; N17.0 Acute kidney failure with tubular necrosis; E86.9 Volume depletion, unspecified; N40.1 Benign prostatic hyperplasia with lower urinary tract symptoms; R53.1 Weakness; I50.9 Heart failure, unspecified; R79.89 Other specified abnormal findings of blood chemistry; I95.9 Hypotension, unspecified; R33.8 Other retention of urine; N13.8 Other obstructive and reflux uropathy